=== PATIENT | male | born 1945 | race Caucasian/White ===

== ENCOUNTER → 2017-06-05 09:11 | Outpatient (CLI) | payer MEDICARE, SELFPAY ==
[2017-06-05 10:29] LABS: AST(SGOT) 22 U/L (15-37); Alanine Aminotransfer ALT/SGPT 38 U/L (16-61); Albumin, Serum 3.5 g/dL (3.2-5.0); Alkaline Phosphatase 55 U/L (45-117); Anion Gap 8 (5-15); BUN 20 mg/dL (7-18); BUN/Creat Ratio 22.6 RATIO (10-20); Calcium,Total 8.9 mg/dL (8.5-10.1); Chloride 104 mmol/L (98-107); Creatinine, Serum 0.88 mg/dL (0.70-1.30); EST Glomerular Filtration Rate 90 mL/min (>60); Est Glom Filt Rate - Afr Amer 109 mL/min (>60); Globulin 3.5 g/dL (2.2-4.2); Glucose 108 mg/dL (74-106); Potassium 3.3 mmol/L (3.5-5.1); Sodium Level 140 mmol/L (136-145)
== END ==
PROVIDERS: Family Provider Family Medicine; PCP Family Medicine; Visit Provider Family Medicine
DX: I10 Essential (primary) hypertension (principal)
CPT/HCPCS: 36415; 80053

== ENCOUNTER → 2018-06-04 10:08 | Outpatient (CLI) | payer OTHER, SELFPAY ==
[2018-06-04 11:47] LABS: Anion Gap 7 (5-15); BUN 17 mg/dL (7-18); BUN/Creat Ratio 17.3 RATIO (10-20); Calcium,Total 8.5 mg/dL (8.5-10.1); Chloride 107 mmol/L (98-107); Cholesterol 134 mg/dL (200); Creatinine, Serum 0.98 mg/dL (0.70-1.30); EST Glomerular Filtration Rate 79 mL/min (>60); Est Glom Filt Rate - Afr Amer 96 mL/min (>60); Glucose 104 mg/dL (74-106); High Density Lipoprotein 44 mg/dL; Potassium 3.8 mmol/L (3.5-5.1); Sodium Level 140 mmol/L (136-145); Triglycerides 90 mg/dL; Very Low Density Lipoprotein 18 mg/dL (5-40)
[2018-06-04 13:50] LABS: Microalbumin,Random Urine 21.3 mg/L (NO RANGE EST.)
== END ==
PROVIDERS: Family Provider Family Medicine; PCP Family Medicine; Referring Provider Family Medicine; Visit Provider Family Medicine
DX: I10 Essential (primary) hypertension (principal)
CPT/HCPCS: 36415; 80048; 80061; 82043

== ENCOUNTER → 2018-12-02 16:16 | Outpatient (CLI) | payer OTHER, SELFPAY ==
[2018-12-02 18:15] LABS: Anion Gap 8 (5-15); BUN 22 mg/dL (7-18); BUN/Creat Ratio 24.3 RATIO (10-20); Calcium,Total 8.7 mg/dL (8.5-10.1); Chloride 110 mmol/L (98-107); Creatinine, Serum 0.91 mg/dL (0.70-1.30); EST Glomerular Filtration Rate 87 mL/min (>60); Est Glom Filt Rate - Afr Amer 105 mL/min (>60); Glucose 83 mg/dL (74-106); Potassium 3.3 mmol/L (3.5-5.1); Sodium Level 145 mmol/L (136-145)
== END ==
PROVIDERS: Family Provider Family Medicine; PCP Family Medicine; Referring Provider Family Medicine; Visit Provider Family Medicine
DX: I10 Essential (primary) hypertension (principal)
CPT/HCPCS: 36415; 80048

== ENCOUNTER → 2019-06-03 09:29 | Outpatient (CLI) | payer OTHER, SELFPAY ==
[2019-06-03 10:29] LABS: Anion Gap 6 (5-15); BUN 21 mg/dL (7-18); BUN/Creat Ratio 21.2 RATIO (10-20); Calcium,Total 8.8 mg/dL (8.5-10.1); Chloride 105 mmol/L (98-107); Cholesterol 147 mg/dL (200); Creatinine, Serum 0.99 mg/dL (0.70-1.30); EST Glomerular Filtration Rate 78 mL/min (>60); Est Glom Filt Rate - Afr Amer 95 mL/min (>60); Glucose 110 mg/dL (74-106); High Density Lipoprotein 42 mg/dL; Potassium 3.3 mmol/L (3.5-5.1); Sodium Level 141 mmol/L (136-145); Triglycerides 154 mg/dL; Very Low Density Lipoprotein 31 mg/dL (5-40)
== END ==
PROVIDERS: PCP Family Medicine; Referring Provider Family Medicine; Visit Provider Family Medicine
DX: I10 Essential (primary) hypertension (principal)
CPT/HCPCS: 36415; 80048; 80061

== ENCOUNTER → 2019-07-12 15:45 | Outpatient (CLI) | payer OTHER, SELFPAY ==
[2019-07-12 18:16] LABS: Anion Gap 6 (5-15); BUN 18 mg/dL (7-18); Calcium,Total 9.4 mg/dL (8.5-10.1); Chloride 103 mmol/L (98-107); Creatinine, Serum 0.95 mg/dL (0.70-1.30); EST Glomerular Filtration Rate 82 mL/min (>60); Est Glom Filt Rate - Afr Amer 100 mL/min (>60); Glucose 76 mg/dL (74-106); Sodium Level 138 mmol/L (136-145)
== END ==
PROVIDERS: PCP Family Medicine; Referring Provider Family Medicine; Visit Provider Family Medicine
DX: Z00.00 Encounter for general adult medical examination without abnormal findings (principal); Z12.5 Encounter for screening for malignant neoplasm of prostate; I10 Essential (primary) hypertension
CPT/HCPCS: 36415; 80048; 84153; G0103

== ENCOUNTER → 2019-09-01 16:27 | Outpatient (CLI) | payer OTHER, SELFPAY ==
[2019-09-01 18:27] LABS: Anion Gap 8 (5-15); BUN 25 mg/dL (7-18); BUN/Creat Ratio 23.1 RATIO (10-20); Calcium,Total 9.1 mg/dL (8.5-10.1); Chloride 104 mmol/L (98-107); Creatinine, Serum 1.08 mg/dL (0.70-1.30); EST Glomerular Filtration Rate 71 mL/min (>60); Est Glom Filt Rate - Afr Amer 86 mL/min (>60); Glucose 140 mg/dL (74-106); Potassium 3.2 mmol/L (3.5-5.1); Sodium Level 139 mmol/L (136-145)
== END ==
PROVIDERS: PCP Family Medicine; Referring Provider Family Medicine; Visit Provider Family Medicine
DX: I10 Essential (primary) hypertension (principal)
CPT/HCPCS: 36415; 80048

== ENCOUNTER → 2019-09-27 15:24 | Outpatient (CLI) | payer OTHER, SELFPAY ==
[2019-09-27 18:10] LABS: Anion Gap 7 (5-15); BUN 23 mg/dL (7-18); BUN/Creat Ratio 22.3 RATIO (10-20); Calcium,Total 8.9 mg/dL (8.5-10.1); Chloride 106 mmol/L (98-107); Creatinine, Serum 1.03 mg/dL (0.70-1.30); EST Glomerular Filtration Rate 75 mL/min (>60); Est Glom Filt Rate - Afr Amer 90 mL/min (>60); Glucose 94 mg/dL (74-106); Potassium 3.3 mmol/L (3.5-5.1); Sodium Level 139 mmol/L (136-145)
== END ==
PROVIDERS: PCP Family Medicine; Visit Provider Family Medicine
DX: E87.6 Hypokalemia (principal)
CPT/HCPCS: 36415; 80048

== ENCOUNTER → 2019-10-06 08:20 | Outpatient (CLI) | payer OTHER, SELFPAY ==
[2019-10-06 15:23] LABS: Anion Gap 7 (5-15); BUN 24 mg/dL (7-18); Calcium,Total 9.1 mg/dL (8.5-10.1); Chloride 107 mmol/L (98-107); Creatinine, Serum 1.26 mg/dL (0.70-1.30); EST Glomerular Filtration Rate 59 mL/min (>60); Est Glom Filt Rate - Afr Amer 72 mL/min (>60); Glucose 199 mg/dL (74-106); Potassium 3.6 mmol/L (3.5-5.1); Sodium Level 142 mmol/L (136-145)
== END ==
PROVIDERS: PCP Family Medicine; Visit Provider Family Medicine
DX: E87.6 Hypokalemia (principal)
CPT/HCPCS: 36415; 80048

== ENCOUNTER → 2019-12-16 09:14 | Outpatient (CLI) | payer MEDICARE, SELFPAY ==
[2019-12-16 10:18] LABS: Anion Gap 5 (5-15); BUN 18 mg/dL (7-18); BUN/Creat Ratio 16.7 RATIO (10-20); Calcium,Total 8.8 mg/dL (8.5-10.1); Chloride 104 mmol/L (98-107); Cholesterol 133 mg/dL (200); Creatinine, Serum 1.08 mg/dL (0.70-1.30); EST Glomerular Filtration Rate 71 mL/min (>60); Est Glom Filt Rate - Afr Amer 86 mL/min (>60); Glucose 109 mg/dL (74-106); High Density Lipoprotein 41 mg/dL; Potassium 3.5 mmol/L (3.5-5.1); Sodium Level 136 mmol/L (136-145); Triglycerides 102 mg/dL; Very Low Density Lipoprotein 20 mg/dL (5-40)
== END ==
PROVIDERS: PCP Family Medicine; Referring Provider Family Medicine; Visit Provider Family Medicine
DX: I10 Essential (primary) hypertension (principal)
CPT/HCPCS: 36415; 80048; 80061

== ENCOUNTER → 2020-07-20 10:04 | Outpatient (CLI) | payer MEDICARE, SELFPAY ==
[2020-07-20 11:14] LABS: Anion Gap 4 (5-15); BUN 20 mg/dL (7-18); Calcium,Total 8.8 mg/dL (8.5-10.1); Chloride 104 mmol/L (98-107); Cholesterol 137 mg/dL (200); Creatinine, Serum 0.91 mg/dL (0.70-1.30); EST Glomerular Filtration Rate 86 mL/min (>60); Est Glom Filt Rate - Afr Amer 104 mL/min (>60); Glucose 108 mg/dL (74-106); High Density Lipoprotein 46 mg/dL; Potassium 3.7 mmol/L (3.5-5.1); Sodium Level 138 mmol/L (136-145); Triglycerides 108 mg/dL; Very Low Density Lipoprotein 22 mg/dL (5-40)
== END ==
PROVIDERS: PCP Family Medicine; Referring Provider Family Medicine; Visit Provider Family Medicine
DX: I10 Essential (primary) hypertension (principal); B97.21 SARS-associated coronavirus as the cause of diseases classified elsewhere
CPT/HCPCS: 36415; 80048; 80061; 86769

== ENCOUNTER → 2020-08-16 15:51 | Outpatient (CLI) | payer MEDICARE, SELFPAY | PROVIDERS: PCP Family Medicine; Referring Provider Family Medicine; Visit Provider Family Medicine | DX: N52.9 Male erectile dysfunction, unspecified (principal) | CPT/HCPCS: 36415; 84403 ==

== ENCOUNTER → 2021-03-01 10:29 | Outpatient (CLI) | payer MEDICARE, SELFPAY ==
[2021-03-01 12:05] LABS: Anion Gap 7 (5-15); BUN 19 mg/dL (7-18); BUN/Creat Ratio 14.8 RATIO (10-20); Calcium,Total 10.1 mg/dL (8.5-10.1); Chloride 102 mmol/L (98-107); Cholesterol 137 mg/dL (200); Creatinine, Serum 1.28 mg/dL (0.70-1.30); EST Glomerular Filtration Rate 58 mL/min (>60); Est Glom Filt Rate - Afr Amer 70 mL/min (>60); Glucose 118 mg/dL (74-106); High Density Lipoprotein 51 mg/dL; Potassium 3.6 mmol/L (3.5-5.1); Sodium Level 138 mmol/L (136-145); Triglycerides 105 mg/dL; Very Low Density Lipoprotein 21 mg/dL (5-40)
== END ==
PROVIDERS: PCP Family Medicine; Visit Provider Family Medicine
DX: I10 Essential (primary) hypertension (principal)
CPT/HCPCS: 36415; 80048; 80061

== ENCOUNTER → 2021-08-06 | Outpatient (CLI) | payer MEDICARE, SELFPAY ==
[2021-08-06 10:36] LABS: Anion Gap 8 (5-15); BUN 21 mg/dL (7-18); BUN/Creat Ratio 15.7 RATIO (10-20); Calcium,Total 9.3 mg/dL (8.5-10.1); Chloride 100 mmol/L (98-107); Creatinine, Serum 1.34 mg/dL (0.70-1.30); EST Glomerular Filtration Rate 55 mL/min (>60); Est Glom Filt Rate - Afr Amer 66 mL/min (>60); Glucose 180 mg/dL (74-106); Potassium 3.6 mmol/L (3.5-5.1); Sodium Level 135 mmol/L (136-145)
== END | disposition home or self-care (01) ==
LOC: MFPLAB 08:46
PROVIDERS: PCP Family Medicine; Referring Provider Family Medicine; Visit Provider Family Medicine
DX: I10 Essential (primary) hypertension (principal)
CPT/HCPCS: 36415; 80048

== ENCOUNTER → 2021-08-20 | Outpatient (CLI) | payer MEDICARE, SELFPAY ==
[2021-08-20 10:27] LABS: Glucose 122 mg/dL (74-106)
[2021-08-20 10:58] LABS: Hemoglobin A1c 5.9 % (3.8-5.6)
== END | disposition home or self-care (01) ==
PROVIDERS: PCP Family Medicine; Visit Provider Family Medicine
DX: R73.09 Other abnormal glucose (principal)
CPT/HCPCS: 36415; 82947; 83036

== ENCOUNTER → 2022-02-05 | Outpatient (CLI) | payer MEDICARE, SELFPAY ==
[2022-02-05 10:29] LABS: Hemoglobin A1c 5.4 % (3.8-5.6)
[2022-02-05 10:52] LABS: Anion Gap 8 (5-15); BUN 21 mg/dL (7-18); BUN/Creat Ratio 17.5 RATIO (10-20); Calcium,Total 9.7 mg/dL (8.5-10.1); Chloride 103 mmol/L (98-107); Cholesterol 156 mg/dL (200); EST Glomerular Filtration Rate 62 mL/min (>60); Est Glom Filt Rate - Afr Amer 75 mL/min (>60); Glucose 120 mg/dL (74-106); High Density Lipoprotein 42 mg/dL; Potassium 3.6 mmol/L (3.5-5.1); Sodium Level 137 mmol/L (136-145); Triglycerides 111 mg/dL; Very Low Density Lipoprotein 22 mg/dL (5-40)
== END | disposition home or self-care (01) ==
LOC: MFPLAB 08:31
PROVIDERS: PCP Family Medicine; Referring Provider Family Medicine; Visit Provider Family Medicine
DX: R73.09 Other abnormal glucose (principal); I10 Essential (primary) hypertension
CPT/HCPCS: 36415; 80048; 80061; 83036

== ENCOUNTER → 2022-02-23 | Outpatient (CLI) | payer MEDICARE, SELFPAY ==
--- NOTE | 2022-02-23 15:06 | RAD_ITS ---
EXAM: XR LEFT RIBS, 2 VIEWS CLINICAL INDICATION: FALL WITH INJURY TECHNIQUE: Frontal and oblique views of the left ribs. This report was created using [employer] report generation technology. COMPARISON: None. FINDINGS: LUNGS AND PLEURAL SPACES: Shallow inspiration. No pneumothorax. No effusion. 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 SOFT TISSUES: Normal. No soft tissue swelling or gas. RAD/Ribs Unil 2V No CXR IMPRESSION: No acute abnormality. Electronically Signed: Zeferino Magallon MD at 15:33 EST ,
== END | disposition home or self-care (01) ==
PROVIDERS: PCP Family Medicine; Referring Provider Family Medicine; Visit Provider Family Medicine
DX: S29.9XXA Unspecified injury of thorax, initial encounter (principal); W19.XXXA Unspecified fall, initial encounter
CPT/HCPCS: 71100

== ENCOUNTER → 2022-09-12 | Outpatient (CLI) | payer MEDICARE, SELFPAY ==
[2022-09-12 09:20] LABS: Anion Gap 4 (5-15); BUN 19 mg/dL (7-18); BUN/Creat Ratio 15.8 RATIO (10-20); Calcium,Total 9.3 mg/dL (8.5-10.1); Chloride 106 mmol/L (98-107); Cholesterol 152 mg/dL (200); EST Glomerular Filtration Rate 62 mL/min (>60); Est Glom Filt Rate - Afr Amer 75 mL/min (>60); Glucose 111 mg/dL (74-106); High Density Lipoprotein 45 mg/dL; Potassium 4.2 mmol/L (3.5-5.1); Sodium Level 138 mmol/L (136-145); Triglycerides 115 mg/dL; Very Low Density Lipoprotein 23 mg/dL (5-40)
== END | disposition home or self-care (01) ==
LOC: LAB 08:45
PROVIDERS: PCP Family Medicine; Referring Provider Family Medicine; Visit Provider Family Medicine
DX: I10 Essential (primary) hypertension (principal)
CPT/HCPCS: 36415; 80048; 80061

== ENCOUNTER → 2023-02-05 | Outpatient (CLI) | payer MEDICARE, SELFPAY ==
[2023-02-05 19:11] LABS: Anion Gap 7 (5-15); BUN 18 mg/dL (7-18); BUN/Creat Ratio 17.8 RATIO (10-20); Calcium,Total 9.1 mg/dL (8.5-10.1); Chloride 103 mmol/L (98-107); Creatinine, Serum 1.01 mg/dL (0.70-1.30); EST Glomerular Filtration Rate 76 mL/min (>60); Est Glom Filt Rate - Afr Amer 92 mL/min (>60); Glucose 90 mg/dL (74-106); Potassium 3.5 mmol/L (3.5-5.1); Sodium Level 138 mmol/L (136-145)
== END | disposition home or self-care (01) ==
LOC: MFPLAB 16:52
PROVIDERS: PCP Family Medicine; Visit Provider Family Medicine
DX: I10 Essential (primary) hypertension (principal)
CPT/HCPCS: 36415; 80048

== ENCOUNTER → 2023-08-04 | Outpatient (CLI) | payer MEDICARE, SELFPAY ==
[2023-08-04 15:13] LABS: Absolute Lymphocyte Count 1.48 X10^3/uL (0.83-4.51); Absolute Neutrophil Count 5.1 X10^3/uL (2.0-7.7); Basophil# 0.05 X10^3/uL; Basophil% 0.6 % (0-1); Eosinophil# 0.26 X10^3/uL; Eosinophils% 3.3 % (0-5); Hematocrit 39.5 % (40-54); Hemoglobin 13.7 g/dL (13.0-16.5); Lymphocyte # 1.48 X10^3/ul (0.83-4.51); Lymphocyte % 18.9 % (19-41); Mean Corp Hgb Conc 34.7 g/dL (32-36); Mean Corpuscular Hgb 31.5 pg (27.0-32.0); Mean Corpuscular Volume 90.8 fL (80-94); Mean Platelet Vol. 10.9 fl (6.2-12.0); Monocyte# 0.87 X10^3/uL; Monocyte% 11.1 % (0-10); NRBC Flagged by Analyzer 0 % (0-5); Neutrophil # 5.11 X10^3/uL (2.7-7.7); Neutrophil % 65.3 % (47-70); Platelet Count 169 K/mm3 (150-450); RBC Distribution Width CV 13.2 % (11.6-14.6); RBC Distribution Width SD 43.6 fl (35.1-43.9); Red Blood Count 4.35 M/mm3 (4.6-6.2); White Blood Count 7.8 K/mm3 (4.4-11.0)
[2023-08-04 15:32] LABS: Hemoglobin A1c 5.7 % (3.8-5.6)
[2023-08-04 15:54] LABS: Anion Gap 7 (5-15); BUN 21 mg/dL (7-18); BUN/Creat Ratio 17.8 RATIO (10-20); Chloride 105 mmol/L (98-107); Cholesterol 142 mg/dL (200); Creatinine, Serum 1.18 mg/dL (0.70-1.30); EST Glomerular Filtration Rate 63 mL/min (>60); Est Glom Filt Rate - Afr Amer 77 mL/min (>60); Glucose 112 mg/dL (74-106); High Density Lipoprotein 45 mg/dL; Potassium 3.8 mmol/L (3.5-5.1); Sodium Level 136 mmol/L (136-145); Thyroid Stim Hormone (TSH) 1.01 uIU/mL (0.358-3.74); Triglycerides 120 mg/dL; Very Low Density Lipoprotein 24 mg/dL (5-40)
== END | disposition home or self-care (01) ==
PROVIDERS: PCP Family Medicine; Referring Provider Family Medicine; Visit Provider Family Medicine
DX: I10 Essential (primary) hypertension (principal); R73.09 Other abnormal glucose; R53.83 Other fatigue
CPT/HCPCS: 36415; 80048; 80061; 83036; 84443; 85025

== ENCOUNTER → 2023-10-27 | Outpatient (CLI) | payer MEDICARE, SELFPAY ==
[2023-10-27 17:59] LABS: Hematocrit 39.6 % (40-54); Hemoglobin 13.6 g/dL (13.0-16.5); Mean Corp Hgb Conc 34.3 g/dL (32-36); Mean Corpuscular Hgb 31.2 pg (27.0-32.0); Mean Corpuscular Volume 90.8 fL (80-94); Mean Platelet Vol. 10.8 fl (6.2-12.0); Platelet Count 209 K/mm3 (150-450); RBC Distribution Width CV 13.2 % (11.6-14.6); RBC Distribution Width SD 44.3 fl (35.1-43.9); Red Blood Count 4.36 M/mm3 (4.6-6.2)
[2023-10-27 18:20] LABS: Anion Gap 6 (5-15); BUN 25 mg/dL (7-18); Chloride 103 mmol/L (98-107); Creatinine, Serum 1.39 mg/dL (0.70-1.30); EST Glomerular Filtration Rate 52 mL/min (>60); Est Glom Filt Rate - Afr Amer 63 mL/min (>60); Glucose 111 mg/dL (74-106); Potassium 3.5 mmol/L (3.5-5.1); Sodium Level 137 mmol/L (136-145); Thyroid Stim Hormone (TSH) 1.12 uIU/mL (0.358-3.74)
== END | disposition home or self-care (01) ==
LOC: MFPLAB 16:47
PROVIDERS: PCP Family Medicine; Visit Provider Family Medicine
DX: R53.83 Other fatigue (principal); I10 Essential (primary) hypertension
CPT/HCPCS: 36415; 80048; 84403; 84443; 85027

== ENCOUNTER 2024-02-09 08:37 | Observation (INO) | payer MEDICARE, SELFPAY ==
--- NOTE | 2024-01-04 10:28 | EKG12_ITS ---
Test Reason : PRE OP Blood Pressure : / mmHG Vent. Rate : 067 BPM Atrial Rate : 067 BPM P-R Int : 166 ms QRS Dur : 088 ms QT Int : 402 ms P-R-T Axes : 035 005 086 degrees QTc Int : 424 ms Normal sinus rhythm Normal ECG Confirmed by GARY LOPEZ, JESSICA ([id number]), graphics editor GRISEL TEE ([id number]) on 01/04/2024 1:29:07 PM Referred By: Anthony Tse Confirmed By:JESSICA VEGA MD
[2024-01-12 09:57] VITALS: BP 121/77; PULSE 73; RESP 17; TEMP 36.4; O2SAT 99; BMI 34.4
[2024-01-12 09:58] VITALS: BP 121/77; PULSE 73; RESP 17; TEMP 36.4; O2SAT 99; BMI 34.4
[2024-01-12] MEDS: Lactated Ringers 1,000 ML 15 ML IV (10:03)
--- NOTE | 2024-01-12 10:25 | PRE.ANES_ITS ---
ASA Classification* ASA Classification ASA Classification: 2 Assessment & Plan Anesthesia* Anesthesia Assessment Anesthesia Assessment: Discussed sedation and/or anesthesia options, risks, benefits, and alternatives with patient/parents/legal guardian/POA. Questions invited. The patient/parents/legal guardian/POA seems to understand and agrees to proceed with anesthesia plan. Reviewed the physical assessment, medical history, allergy history and patient home medications list prior to surgery/procedure/anesthetic and documented any changes. Performed airway and anesthesia risk assessments. Procedural Plan Procedural Plan:: NOT optimized for anesthesia (Patient had peanut butter with his morning medications at 8 AM.) and Surgeon canceled surgery Anesthesia Type Anesthesia Type: General History Source History Obtained from:: Patient and Chart Anesthesia Focused Assessment* Temperature: 97.6 F Pulse Rate: 73 Blood Pressure: 121/77 Respiratory Rate: 17 Pulse Ox: 99 Oxygen Delivery Method: Room Air Airway Assessment Mouth opens: >3 cm Mallampati Score: IV Teeth Condition: Dentures (Patient has upper and lower dentures.) Neck Range of motion (ROM): Limited ROM Focused Labs Anesthesia Preop lab: CBC WBC 9.0 K/mm3 (4.4-11.0) 10/27/23 16:47 RBC 4.36 M/mm3 (4.6-6.2) L 10/27/23 16:47 Hgb 13.6 g/dL (13.0-16.5) 10/27/23 16:47 Hct 39.6 % (40-54) L 10/27/23 16:47 Plt Count 209 K/mm3 (150-450) 10/27/23 16:47 CHEMISTRY Potassium 3.5 mmol/L (3.5-5.1) 10/27/23 16:47 Sodium 137 mmol/L (136-145) 10/27/23 16:47 BUN 25 mg/dL (7-18) H 10/27/23 16:47 Creatinine 1.39 mg/dL (0.70-1.30) H 10/27/23 16:47 Glucose 111 mg/dL (74-106) H 10/27/23 16:47 TSH 1.12 uIU/mL (0.358-3.74) 10/27/23 16:47 COAG Pre-Assessment Diagnosis/Proposed Procedure Planned Operative Procedure(s): Hernia, Open Umbilical Repair w/ Mesh Anesthesia History Anesthesia History - slab tripper: Anesthesia History - slab tripper Hx Hospitalization No 12/30/23 08:27 Any Problems With Anesthesia No 12/30/23 08:27 Cholinesterase deficiency No 12/30/23 08:27 You/Your Family Experience No 12/30/23 08:27 fever (hyperthermia) with Relationship Recent Exposure to Contagious No 01/12/24 09:58 Disease Does patient have nerve No 12/30/23 08:27 stimulator Patient instructed to have device shut off --Does patient have Pacemaker No 01/12/24 09:58 or ICD? When Was Last Pacemaker Check QUESTION #4 FULL TEXT: You/Your Family Experience fever (hyperthermia) with Anesthesia Last Oral Intake Last Oral intake: Last Oral Intake NPO since 08:00 01/12/24 09:58 Meds taken in AM with sips of Yes 01/12/24 09:58 water? Meds patient instructed to see home med list 01/12/24 09:58 take am of surgery Any additional information?: Yes NPO since: 08:00 (Patient had peanut butter with his morning pills.) PONV PONV - slab tripper: PONV - slab tripper Female No 12/30/23 08:27 HX of Motion Sickness No 12/30/23 08:27 HX of N/V After Surgery No 12/30/23 08:27 Non-Smoker Yes 12/30/23 08:27 Duration of Surgery greater Yes 12/30/23 08:27 than 60 minutes Number of Risk Factors 2 12/30/23 08:27 PONV Score Moderate Risk 12/30/23 08:27 Height & Weight Height & Weight: Anesthesia: Height & Weight Height 5 ft 10 in 01/12/24 09:58 Weight: 109 kg 01/12/24 09:58 Body Mass Index (BMI) 34.4 01/12/24 09:58 Respiratory Assessment Respiratory Assessment - slab tripper: Respiratory Tract Infection Hx - slab tripper Hx Respiratory Tract Infection No 12/30/23 08:27 STOP Sleep Apnea STOP Sleep Apnea - slab tripper: STOP Sleep Apnea - slab tripper Hx Hypertension Yes: CONTROLLED WITH MED 12/30/23 08:27 Hx Sleep Apnea No 12/30/23 08:27 CPAP BIPAP Do you snore loudly (louder No 12/30/23 08:27 than talking or can be heard Do you often feel tired/ No 12/30/23 08:27 fatigued/ sleepy during daytime? Has anyone observed you stop No 12/30/23 08:27 breathing during sleep? STOP Results Negative 12/30/23 08:27 QUESTION #5 FULL TEXT : Do you snore loudly (louder than talking or can be heard through closed doors)? 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 Specify any problems Hx of Preganancy in last 3 N/A 12/30/23 08:27 Months Nurse Filling Out Transfusion [facility] 12/30/23 08:27 & Questions: Date: 12/30/23 12/30/23 08:27 Time: 08:28 12/30/23 08:27 Patient unable to answer at this time (ie. confused, unrespo /Reproduction History /Reproductive History - slab tripper: /Reproductive Hx- slab tripper Hx Now No 12/30/23 08:27 Gestational Age (in weeks): EDC: Hx Hx Para Hx Section SAB No 12/30/23 08:27 Active Medications Active Medications: Current Medications Generic Name Dose Route Start Last Admin Trade Name Freq PRN Reason Stop Dose Admin Cefazolin Sodium 2 gm/ N/A 20 mls @ 400 mls/hr 01/12/24 11:00 IV 01/12/24 11:02 PREOP ONE Lactated Ringer's 1,000 mls @ 15 mls/hr 01/12/24 10:00 01/12/24 10:03 IV 01/17/24 23:19 15 mls/hr .Q48H SABA Administration Protocol PFS Medical History (Updated 12/30/23 @ 08:38 by Mahsa Rose) Wears glasses Alcohol use History of kidney stones Syncope Gastric reflux Non-smoker Wears dentures HTN (hypertension) Home Medications ?Medication ?Instructions ?Recorded ?Last Taken ?Type Saccharomyces boulardii 250 mg 250 mg PO BID 12/21/23 01/11/24 History capsule (Daily Probiotic (S. boulardii)) [id number] 333 mg-133 2 tab PO DAILY 12/21/23 01/11/24 History mg-5 mg tablet chlorthalidone 25 mg tablet 25 mg PO QDAY 12/21/23 01/12/24 History cholecalciferol (vitamin D3) 25 25 mcg PO QDAY 12/21/23 01/11/24 History mcg (1,000 unit) capsule losartan 50 mg tablet 50 mg PO QDAY 12/21/23 01/12/24 History potassium chloride 20 mEq 20 meq PO QDAY 12/21/23 01/12/24 History tablet,extended release spironolactone 25 mg tablet 12.5 mg PO QDAY 12/21/23 01/12/24 History vitamin B comp and C no.3 15 mg-10 1 cap PO QDAY 12/21/23 01/11/24 History mg-50 mg-5 mg-300 mg capsule (B Complex Plus Vitamin C) Allergy/AdvReac Type Severity Reaction Status Date / Time lisinopril Allergy Mild Other Verified 01/12/24 09:56 Family History (Updated 12/21/23 @ 13:06 by Jenni García) Father Cancer lung Mother Heart disease Surgical History (Updated 12/30/23 @ 08:38 by Mahsa Rose) History of colonoscopy History of facial fracture repair (~1974) Social History Smoking Status: Never smoker Review of Systems (Anesthesia) ROS Narrative System reviewed and no additional complaints, except as documented.
--- NOTE | 2024-01-12 10:29 | HP.PCM_ITS ---
History and Physical Date of Admission: 01/12/24 Intake Vital Signs 12/20/2412:06 Height 5 ft 10 in Weight: 237 lb BMI 34.0 BP 106/69 Blood Pressure Location Rt brachial Position Sitting Respiration 17 Pulse 69 Pulse Source Monitor Pulse Oximetry (%) 96 Oxygen Delivery Method room air Intake Visit Reasons: UMBILICAL HERNIA Chief Complaint: umbilical hernia Is patient in pain?: No Allergies lisinopril Allergy (Mild, Verified 12/21/23 13:07) Other Medications ?Medication ?Instructions ?Recorded ?Confirmed ?Type Saccharomyces boulardii 250 mg 250 mg PO BID 12/21/23 12/21/23 History capsule (Daily Probiotic (S. boulardii)) [id number] 333 mg-133 tab PO 12/21/23 12/21/23 History mg-5 mg tablet chlorthalidone 25 mg tablet 25 mg PO QDAY 12/21/23 12/21/23 History cholecalciferol (vitamin D3) 25 25 mcg PO QDAY 12/21/23 12/21/23 History mcg (1,000 unit) capsule losartan 50 mg tablet 50 mg PO QDAY 12/21/23 12/21/23 History potassium chloride 20 mEq 20 meq PO QDAY 12/21/23 12/21/23 History tablet,extended release spironolactone 25 mg tablet 12.5 mg PO QDAY 12/21/23 12/21/23 History vitamin B comp and C no.3 15 mg-10 1 cap PO QDAY 12/21/23 12/21/23 History mg-50 mg-5 mg-300 mg capsule (B Complex Plus Vitamin C) Have you fallen in the past year?: No PFSH Medical History (Updated 12/21/23 @ 13:[address] Anthony Tse MD) HTN (hypertension) Family History (Updated 12/21/23 @ 13:06 by Jenni García) Father Cancer lungMother Heart disease HPI HPI HPI: Patient is an 78-year-old male here with a large umbilical hernia. The patient reports has been there for several years. Is becoming more painful. He is able to reduce it. He denies nausea or vomiting. ROS General General: No weight change, appetite, fatigue, colon cancer, breast cancer or weakness HEENT HEENT: No difficulty swallowing, eye injury, eye surgery, swollen glands or hoarseness Endo Endocrine: No thyroid disease, diabetes mellitus, thyroid cancer, Hair loss, heat intolerance or cold intolerance Skin Skin: No rash or changing moles Musc Musculoskeletal: No back problems, arthritis, rheumatoid arthritis, gout or joint pain Cardio Cardiovascular: Yes high blood pressure; No murmur, pacemaker, heart disease, atrial fibrillation, heart attack, heart stent, palpitations, shortness of breat with exertion or chest pain Psych Psychiatric: No depression, anxiety or hearing voices Resp Respiratory: No shortness of breath, No sleep apnea, No cough, No COPD, No asthma, No emphysema and No wheezing Gastro Gastrointestinal: No abdominal pain, No nausea or vomiting, No diarrhea, No constipation, No blood in stool, No acid reflux, No hemorrhoids, No ulcers, No g allbladder problem and No black,tarry stools Baljit Hematologic: No blood thinners, No blood disorders, No bleeding, No anemia and No blood clots Neuro Neurologic: No system reviewed and no additional complaints, except as documented, No as per HPI, No abnormal gait, No abnormal hearing, No abnormal movements, No abnormal speech, No behavioral changes, No burning sensations, No confusion, No convulsions, No disequilibrium, No dizziness, No localized weakness, No frequent falls, No headache(s), No lack of coordination, No loss of vision, No memory loss, No numbness, No other visual disturbances, No radicular pain, No restless legs, No sensory deficit, No syncope, No tingling, No tremor(s), No weakness and No other Exam Const General: cooperative Orientation: alert and oriented x3 HENMT Head: normal to inspection Neck Neck: normal visual inspection and full ROM Chest Chest palpation & inspection: normal inspection of the chest Resp Effort & Inspection: normal respiratory effort Auscultation: clear to auscultation bilaterally Cardio Rate: regular rate Rhythm: regular rhythm GI Inspection: non-distended Palpation: soft, hernia umbilical and nontender Skin General: no rashes or lesions noted Neuro General: patient alert and patient oriented x3 Extrem General: full ROM Psych Appearance: grossly normal Mental Status: mental status grossly normal Assessment and Plan Assessment and Plan (1) Umbilical hernia: Status: Acute Qualifiers: Obstruction and gangrene presence: without obstruction or gangrene Qualified Code(s): K42.9 - Umbilical hernia without obstruction or gangrene Plan: The patient has a large umbilical hernia. The defect measures approximately 4 cm in diameter and 4 cm in length. It is easily reducible. I discussed a retrorectus open repair with him in detail. I discussed placement of mesh as well. I discussed the risks of the procedure such as bleeding, infection, injury other organs, recurrence of hernia. Patient understands all the risks and is willing to proceed. Anthony Tse MD Pager: [facility] [address] [place] [address] [address] [place] [address] Office: I have examined the patient and the H&P has been reviewed. There are no clinical changes since date of exam.
[2024-01-12 10:32] VITALS: BP 121/77; PULSE 73; RESP 17; TEMP 36.4; O2SAT 99
--- NOTE | 2024-01-12 10:53 | NURSING ---
PT TOLD DR. ADAMS THAT HE HAD PEANUT BUTTER WITH HIS PILLS THIS MORNING AT 0800. PER ANESTHESIA GUIDELINES PT CANNOT GO FOR [address] ARCHER IS NOT ABLE TO DO SURGERY THAT LATE TODAY. PT IS ELECTIVE, SURGERY TO BE CANCELLED TODAY AND RESCHEDULED FOR A LATER DATE. PT GUIDED TO NOT EAT OR DRINK MORNING OF SURGERY. IV DISCONTINUED AND PT D/C TO HOME.
[2024-02-09] VITALS (16 sets, daily range): BP systolic 97–133; BP diastolic 59–85; PULSE 65–87; RESP 16–18; TEMP 36.1–37; O2SAT 92–100; BMI 34.4
[2024-02-09] MEDS: Lactated Ringers 1,000 ML 15 ML IV ×2 (06:21→10:59)
--- NOTE | 2024-02-09 07:11 | PRE.ANES_ITS ---
ASA Classification* ASA Classification ASA Classification: 2 Assessment & Plan Anesthesia* Anesthesia Assessment Anesthesia Assessment: Discussed sedation and/or anesthesia options, risks, benefits, and alternatives with patient/parents/legal guardian/POA. Questions invited. The patient/parents/legal guardian/POA seems to understand and agrees to proceed with anesthesia plan. Reviewed the physical assessment, medical history, allergy history and patient home medications list prior to surgery/procedure/anesthetic and documented any changes. Performed airway and anesthesia risk assessments. Anesthesia Type Anesthesia Type: General Anesthesia Focused Assessment* Temperature: 98.1 F Pulse Rate: 68 Blood Pressure: 133/76 Respiratory Rate: 18 Pulse Ox: 100 Airway Assessment Mouth opens: >3 cm Mallampati Score: II Focused Labs Anesthesia Preop lab: CBC WBC 9.0 K/mm3 (4.4-11.0) 10/27/23 16:47 RBC 4.36 M/mm3 (4.6-6.2) L 10/27/23 16:47 Hgb 13.6 g/dL (13.0-16.5) 10/27/23 16:47 Hct 39.6 % (40-54) L 10/27/23 16:47 Plt Count 209 K/mm3 (150-450) 10/27/23 16:47 CHEMISTRY Potassium 3.5 mmol/L (3.5-5.1) 10/27/23 16:47 Sodium 137 mmol/L (136-145) 10/27/23 16:47 BUN 25 mg/dL (7-18) H 10/27/23 16:47 Creatinine 1.39 mg/dL (0.70-1.30) H 10/27/23 16:47 Glucose 111 mg/dL (74-106) H 10/27/23 16:47 TSH 1.12 uIU/mL (0.358-3.74) 10/27/23 16:47 COAG Pre-Assessment Diagnosis/Proposed Procedure Planned Operative Procedure(s): Hernia, Open Umbilical Repair w/ Mesh Anesthesia History 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 When Was Last Pacemaker Check QUESTION #4 FULL TEXT: You/Your Family Experience fever (hyperthermia) with Anesthesia Last Oral Intake Last Oral intake: Last Oral Intake NPO since 00:00 02/09/24 06:18 Meds taken in AM with sips of No 02/09/24 06:18 water? Meds patient instructed to see home med list 01/12/24 09:58 take am of surgery PONV PONV - plumbing engineering draftsperson: PONV - plumbing engineering draftsperson Female No 02/02/24 13:20 HX of Motion Sickness No 02/02/24 13:20 HX of N/V After Surgery No 02/02/24 13:20 Non-Smoker Yes 02/02/24 13:20 Duration of Surgery greater Yes 02/02/24 13:20 than 60 minutes Number of Risk Factors 2 02/02/24 13:20 PONV Score Moderate Risk 02/02/24 13:20 Height & Weight Height & Weight: Anesthesia: Height & Weight Height 5 ft 10 in 02/09/24 06:18 Weight: 109 kg 02/09/24 06:18 Body Mass Index (BMI) 34.4 02/09/24 06:18 Respiratory Assessment Respiratory Assessment - plumbing engineering draftsperson: Respiratory Tract Infection Hx - plumbing engineering draftsperson Hx Respiratory Tract Infection No 02/02/24 13:20 STOP Sleep Apnea STOP Sleep Apnea - plumbing engineering draftsperson: STOP Sleep Apnea - plumbing engineering draftsperson Hx Hypertension Yes: CONTROLLED WITH MED 02/02/24 13:20 Hx Sleep Apnea No 02/02/24 13:20 CPAP BIPAP Do you snore loudly (louder No 02/02/24 13:20 than talking or can be heard Do you often feel tired/ No 02/02/24 13:20 fatigued/ sleepy during daytime? Has anyone observed you stop No 02/02/24 13:20 breathing during sleep? STOP Results Negative 02/02/24 13:20 QUESTION #5 FULL TEXT : Do you snore loudly (louder than talking or can be heard through closed doors)? 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 Specify any problems Hx of Preganancy in last 3 N/A 02/02/24 13:20 Months Nurse Filling Out Transfusion [facility] 02/02/24 13:20 & Questions: Date: 02/02/24 02/02/24 13:20 Time: 13:20 02/02/24 13:20 Patient unable to answer at this time (ie. confused, unrespo /Reproduction History /Reproductive History - plumbing engineering draftsperson: /Reproductive Hx- plumbing engineering draftsperson Hx Now No 02/02/24 13:20 Gestational Age (in weeks): EDC: Hx Hx Para Hx Section SAB No 02/02/24 13:20 Active Medications Active Medications: Current Medications Generic Name Dose Route Start Last Admin Trade Name Freq PRN Reason Stop Dose Admin Cefazolin Sodium 2 gm/ N/A 20 mls @ 400 mls/hr 02/09/24 07:30 IV 02/09/24 07:32 PREOP ONE Lactated Ringer's 1,000 mls @ 15 mls/hr 02/09/24 06:00 02/09/24 06:21 IV 02/12/24 00:39 15 mls/hr .Q48H SABA Administration Protocol [facility] Medical History Wears glasses Alcohol use History of kidney stones Syncope Gastric reflux Non-smoker Wears dentures HTN (hypertension) Home Medications ?Medication ?Instructions ?Recorded ?Last Taken ?Type Saccharomyces boulardii 250 mg 250 mg PO BID 12/21/23 02/06/24 History capsule (Daily Probiotic (S. boulardii)) ammvafl-jpaxlhnby-qgms 333 mg-133 2 tab PO DAILY 12/21/23 02/06/24 History mg-5 mg tablet chlorthalidone 25 mg tablet 25 mg PO QDAY 12/21/23 02/08/24 History cholecalciferol (vitamin D3) 25 25 mcg PO QDAY 12/21/23 02/06/24 History mcg (1,000 unit) capsule losartan 50 mg tablet 50 mg PO QDAY 12/21/23 02/08/24 History potassium chloride 20 mEq 20 meq PO QDAY 12/21/23 02/08/24 History tablet,extended release spironolactone 25 mg tablet 12.5 mg PO QDAY 12/21/23 02/08/24 History vitamin B comp and C no.3 15 mg-10 1 cap PO QDAY 12/21/23 02/06/24 History mg-50 mg-5 mg-300 mg capsule (B Complex Plus Vitamin C) Allergy/AdvReac Type Severity Reaction Status Date / Time lisinopril Allergy Mild Other Verified 02/09/24 06:06 Family History Father Cancer lung Mother Heart disease Surgical History History of colonoscopy History of facial fracture repair (~1974) Social History Smoking Status: Never smoker Review of Systems (Anesthesia) ROS Narrative System reviewed and no additional complaints, except as documented.
--- NOTE | 2024-02-09 07:20 | PCM.HP.BLA ---
History and Physical Date of Admission: 02/09/24 Intake Vital Signs 12/20/2412:06 Height 5 ft 10 in Weight: 237 lb BMI 34.0 BP 106/69 Blood Pressure Location Rt brachial Position Sitting Respiration 17 Pulse 69 Pulse Source Monitor Pulse Oximetry (%) 96 Oxygen Delivery Method room air Intake Visit Reasons: UMBILICAL HERNIA Chief Complaint: umbilical hernia Is patient in pain?: No Allergies lisinopril Allergy (Mild, Verified 12/21/23 13:07)Other Medications ?Medication ?Instructions ?Recorded ?Confirmed ?Type Saccharomyces boulardii 250 mg 250 mg PO BID 12/21/23 12/21/23 History capsule (Daily Probiotic (S. boulardii)) [id number]-[id number] 333 mg-133 tab PO 12/21/23 12/21/23 History mg-5 mg tablet chlorthalidone 25 mg tablet 25 mg PO QDAY 12/21/23 12/21/23 History cholecalciferol (vitamin D3) 25 25 mcg PO QDAY 12/21/23 12/21/23 History mcg (1,000 unit) capsule losartan 50 mg tablet 50 mg PO QDAY 12/21/23 12/21/23 History potassium chloride 20 mEq 20 meq PO QDAY 12/21/23 12/21/23 History tablet,extended release spironolactone 25 mg tablet 12.5 mg PO QDAY 12/21/23 12/21/23 History vitamin B comp and C no.3 15 mg-10 1 cap PO QDAY 12/21/23 12/21/23 History mg-50 mg-5 mg-300 mg capsule (B Complex Plus Vitamin C) Have you fallen in the past year?: No PFSH Medical History (Updated 12/21/23 @ 13:[address] Anthony Tse MD) HTN (hypertension) Family History (Updated 12/21/23 @ 13:06 by Jenni García) Father Cancer lungMother Heart disease HPI HPI HPI: Patient is an 78-year-old male here with a large umbilical hernia. The patient reports has been there for several years. Is becoming more painful. He is able to reduce it. He denies nausea or vomiting. ROS General General: No weight change, appetite, fatigue, colon cancer, breast cancer or weakness HEENT HEENT: No difficulty swallowing, eye injury, eye surgery, swollen glands or hoarseness Endo Endocrine: No thyroid disease, diabetes mellitus, thyroid cancer, Hair loss, heat intolerance or cold intolerance Skin Skin: No rash or changing moles Musc Musculoskeletal: No back problems, arthritis, rheumatoid arthritis, gout or joint pain Cardio Cardiovascular: Yes high blood pressure; No murmur, pacemaker, heart disease, atrial fibrillation, heart attack, heart stent, palpitations, shortness of breat with exertion or chest pain Psych Psychiatric: No depression, anxiety or hearing voices Resp Respiratory: No shortness of breath, No sleep apnea, No cough, No COPD, No asthma, No emphysema and No wheezing Gastro Gastrointestinal: No abdominal pain, No nausea or vomiting, No diarrhea, No constipation, No blood in stool, No acid reflux, No hemorrhoids, No ulcers, No gallbladder problem and No black,tarry stools Baljit Hematologic: No blood thinners, No blood disorders, No bleeding, No anemia and No blood clots Neuro Neurologic: No system reviewed and no additional complaints, except as documented, No as per HPI, No abnormal gait, No abnormal hearing, No abnormal movements, No abnormal speech, No behavioral changes, No burning sensations, No confusion, No convulsions, No disequilibrium, No dizziness, No localized weakness, No frequent falls, No headache(s), No lack of coordination, No loss of vision, No memory loss, No numbness, No other visual disturbances, No radicular pain, No restless legs, No sensory deficit, No syncope, No tingling, No tremor(s), No weakness and No other Exam Const General: cooperative Orientation: alert and oriented x3 HENHI Head: normal to inspection Neck Neck: normal visual inspection and full ROM Chest Chest palpation & inspection: normal inspection of the chest Resp Effort & Inspection: normal respiratory effort Auscultation: clear to auscultation bilaterally Cardio Rate: regular rate Rhythm: regular rhythm GI Inspection: non-distended Palpation: soft, hernia umbilical and nontender Skin General: no rashes or lesions noted Neuro General: patient alert and patient oriented x3 Extrem General: full ROM Psych Appearance: grossly normal Mental Status: mental status grossly normal Assessment and Plan Assessment and Plan (1) Umbilical hernia: Status: Acute Qualifiers: Obstruction and gangrene presence: without obstruction or gangrene Qualified Code(s): K42.9 - Umbilical hernia without obstruction or gangrene Plan: The patient has a large umbilical hernia. The defect measures approximately 4 cm in diameter and 4 cm in length. It is easily reducible. I discussed a retrorectus open repair with him in detail. I discussed placement of mesh as well. I discussed the risks of the procedure such as bleeding, infection, injury other organs, recurrence of hernia. Patient understands all the risks and is willing to proceed. Anthony Tse MD Pager: [facility] [address] [place] [address] [address] [place] [address] Office: I have examined the patient and the H&P has been reviewed. There are no clinical changes since date of exam. Patient had surgery canceled last month due to eating before surgery and this is rescheduled.
--- NOTE | 2024-02-09 07:30 | HERN_PTH ---
PATIENT: OLIVER CORREIA LOC: [facility] U#:[id number] AGE/SX: 78/M ROOM: IN313 RE02/09/[address]: Dr. Anthony Tse MD : 1945 BED: 1 DIS: 02/10/2024 SPEC #: [id number] RECD: 02/09/24 09:21 STATUS: MARGE GOLDMANSidney #: [id number] PARTHA: 02/09/24 07:[address]: Anthony Tse DEPT: SURGICAL PATHOLOGY RECD BY: Rolly Chou ENTERED: 02/09/24 11:25 SP TYPE: Hernia OTHR DR: Dr. Ralph Valles MD Tissues: HERNIA Procedures: Surgery Specimen Level II HEADER OPERATION: Hernia, open umbilical repair with mesh PRE-OP DIAGNOSIS: Umbilical hernia TISSUE SUBMITTED: Hernia sac MICROSCOPIC DIAGNOSIS Hernia sac: Pieces of fibroadipose tissue and fibroconnective tissue, consistent with hernia sac. SJ.mr 02/10/2024 MICROSCOPIC DESCRIPTION Slides are reviewed. GROSS DESCRIPTION Received in fixative is one container labeled with the patient's name and designated Hernia sac. The specimen consists of two irregular pieces of pink congested soft tissue measuring in aggregate 10.0 x 6.0 x 1.0cm. Sections do not reveal any mass lesions. Director Digital Catalogue sections are submitted in two cassettes. 02/09/2024 TC:5 CPT:60805
[2024-02-09] MEDS: Cefazolin 2 GM in Syringe IV (07:35)
--- NOTE | 2024-02-09 08:39 | OP.PCM_ITS ---
Operative Report (Standard) Operative Information Surgery/Procedure Performed: Ventral hernia repair with mesh over 3 cm Surgeon: Anthony Tse Date of Procedure: 02/09/24 Procedure Start Time: 07:43 Procedure Stop Time: 08:45 Pre-Operative Diagnosis: Umbilical hernia over 3 cm Post-Operative Diagnosis: Umbilical hernia 5 cm in diameter Select all DRAINS/GRAFTS/IMPLANTS that apply: Implanted device Implanted device details: 8 x [address] mesh Type of Anesthesia: General/Regional Estimated Blood Loss: 10 Specimen collected: Yes Description of specimen(s) removed: Hernia sac Description of surgery: Patient was brought back to the operating room and general anesthesia was induced. The abdomen was prepped and draped in usual sterile fashion. An elliptical incision was made excising some of the extra skin after the hernia was reduced. While making skin incision a small area of small bowel had some cautery injury. This was imbricated using 3-0 silk sutures. Next the bowel was returned to the abdomen. The elliptical incision was completed and the skin was removed. The hernia sac was removed with it. The anterior fascia was dissected circumferentially and then elevated. The retrorectus space was accessed and using electrocautery the posterior rectus sheath was divided from the rectus muscle. This was done on both sides and it was extended superiorly and inferiorly. Once dissection was completed the posterior rectus sheath was reapproximated using a #1 PDS suture. After this was reapproximated the area was irrigated and suctioned dry and then a Ventrio mesh was selected and placed into the retrorectus space. Next the area was irrigated and suctioned dry. The anterior fascia was then closed with a running #1 Prolene suture. Next the skin was reapproximated with interrupted 3-0 Vicryl sutures and a running 4-0 Monocryl suture. Steri-Strips and bandages were applied. Patient was taken to PACU in stable condition and will be observed overnight due to the size of the hernia and the patient's debility. 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
[2024-02-09] MEDS: Bupiv/Epi 0.25% 30 ML Vial (08:46)
--- NOTE | 2024-02-09 09:59 | PCM.POST.ANE ---
Anesthesia: Postop Eval I Current Vital Signs Temperature: 97 F Pulse Rate: 70 Blood Pressure: 106/68 Respiratory Rate: 16 Pulse Ox: 97 Assessment Airway patent: Yes Spontaneous unlabored respirations: Yes Mental status: Awake nausea: No Vomiting: No Anesthesia Complication: No Fluid Hydration Crystalloid volume administer (ml): 500 Total IV fluid infused: 500 Progress Note Anesthesia document: Postop Eval 1 completed: Yes
--- NOTE | 2024-02-09 10:00 | PCM.POSTANE2 ---
Anesthesia Postop Eval I Sum Postop Eval Completion status Anesthesia document: Postop Eval 1 completed: Yes Anesthesia Postop Eval I Summary Anesthesia Postop Eval I Summary: Anesthesia Postop Eval I: Assessment Summary Airway patent Yes 02/09/24 10:00 Spontaneous unlabored Yes 02/09/24 10:00 respirations Mental status Awake 02/09/24 10:00 nausea No 02/09/24 10:00 Vomiting No 02/09/24 10:00 Anesthesia Postop Eval I: Fluid Summary Crystalloid volume administer 500 02/09/24 10:00 (ml) Colloids volume administered ( ml) Blood Product volume administered (ml) Total IV fluid infused 500 02/09/24 10:00 Anesthesia Postop Eval I: Summary Notes Anesthesia Complication No 02/09/24 10:00 Anesthesia Complication Comment: Post-operative progress note Anesthesia: Postop Eval II Evaluation Mental status: Awake Pain Level: 0 nausea: No Vomiting: No
[2024-02-09] MEDS: Ketorolac 15 MG/ML Vial IV (10:27)
[2024-02-09] MEDS: Morphine 2 MG/ML Syringe IV (10:58)
[2024-02-09] MEDS: oxyCODONE 5 MG Tablet PO (16:06)
[2024-02-10 03:20] VITALS: BP 108/70; PULSE 65; RESP 16; TEMP 36.6; O2SAT 96
[2024-02-10] MEDS: Acetaminophen 325 MG Tablet 650 MG PO (03:22)
[2024-02-10] MEDS: oxyCODONE 5 MG Tablet PO ×2 (03:22→08:26)
--- NOTE | 2024-02-10 07:57 | PCM.PN.SRG ---
Subjective Subjective Patient is doing well with no complaints Objective Data Objective Data Vital Signs: Vital Signs Temp Pulse Resp BP Pulse Ox O2 Del Method O2 Flow Rate 98 F 65 16 108/70 96 Room Air 2 02/10/24 03:20 02/10/24 03:20 02/10/24 03:20 02/10/24 03:20 02/10/24 03:20 02/10/24 03:20 02/09/24 09:45 Oxygen Flow Rate (L/min) 2 Oxygen Delivery Method Room Air Weight: 240 lb 4.862 oz Body Mass Index (BMI) 34.4 Intake & Output: Intake and Output for Last 24 Hours 02/08/24 02/09/24 02/10/24 23:59 23:59 23:59 Intake Total 3675.25 / 3675.25 Balance 3675.25 / 3675.25 Physical Exam Const oriented x3 and no apparent distress Resp normal respiratory effort Cardio regular rate and regular rhythm GI soft to palpation Palpation: tender Assessment & Plan Assessment/Plan (1) Umbilical hernia: QUALIFIERS: Obstruction and gangrene presence: without obstruction or gangrene Qualified Code(s): K42.9 - Umbilical hernia without obstruction or gangrene PLAN: Patient is doing well after large umbilical hernia repair. He was kept overnight for observation due to the size of the hernia. Patient is doing well today. Pain is well-controlled. I will discharge him home. Anthony Tse MD Pager: [facility] [address] [place] [address], [address] [place] [address] Office:
--- NOTE | 2024-02-10 07:59 | DCINST_ITS ---
Discharge Instructions Diet Discharge Diet: No restrictions Activity Discharge Activity: May Drive (when off narcotics) and May Shower Lifting Restrictions: 15 lbs for 6 weeks Additional Activity Instructions:: Alternate ibuprofen and Tylenol for pain control, oxycodone for breakthrough pain Dressing / Incision Call your doctor if your incision/area has: Continuous Slow Oozing, Sudden Increased Bleeding, Increased Pain/ Swelling, Increased Redness, Foul Smelling Discharge and Swelling at the incision site Call your doctor if you observe: Fever of 101 or Higher Change Dressing in: 2 days Cleanse incision/area with: Soap & Water Follow Up Care Please Follow Up With: Anthony Tse MD When: Please call to schedule 2 week follow up appointment. [phone] Test Results: Test results from this visit will be discussed in further detail at your follow- up appointment, if applicable. Discharge Plan Admission Admit Date/Time: 02/09/24 08:37 Attending Provider: Anthony Tse Primary Care Provider: Ralph Valles Discharge Orders/Prescriptions Prescriptions: New oxycodone 5 mg Tablet 5 - 10 mg PO Q4H PRN PRN (Reason: Pain Score 4-10) 5 Days Qty: 20 0RF Continued losartan 50 mg tablet 50 mg PO QDAY chlorthalidone 25 mg tablet 25 mg PO QDAY potassium chloride 20 mEq tablet extended release 20 meq PO QDAY spironolactone 25 mg tablet 12.5 mg PO QDAY cholecalciferol (vitamin D3) 25 mcg (1,000 unit) capsule 25 mcg PO QDAY plzcdna-sfblktepu-zwso 333-133-5 mg tablet 2 tab PO DAILY Saccharomyces boulardii [Daily Probiotic (S. boulardii)] 250 mg capsule 250 mg PO BID B Complex Plus Vitamin C 97-73-15-5-300 mg capsule 1 cap PO QDAY Rx Instructions: give with food (meal/snack) Other Ambulatory Orders: 12 Lead EKG (Routine) Timeframe: 20231230 Location: None Selected Ordered By: Dr. Miguel Krause Referrals / Follow Up: Ralph Valles MD [Primary Care Provider] - Disposition Disposition (needs filled in before D/C Order can be placed): Home, Self Care
[2024-02-10 08:32] VITALS: BP 118/62; PULSE 93; RESP 16; TEMP 36.6; O2SAT 93
== END 2024-02-10 08:43 | disposition home or self-care (01) ==
LOC: SDC 11:14 → MS3 11:14
PROVIDERS: Admitting Provider Surgery; PCP Family Medicine; Referring Provider Surgery; Visit Provider Surgery
PROC: (CPT 49593; principal; 2024-02-09 07:15)
DX: K42.9 Umbilical hernia without obstruction or gangrene (principal); I10 Essential (primary) hypertension; R53.81 Other malaise; Z79.899 Other long term (current) drug therapy
CPT/HCPCS: 49593; 00750; 88302; 93005; 99221; J7120; C1781; G0378; J2405

== ENCOUNTER → 2024-04-28 | Outpatient (CLI) | payer MEDICARE, SELFPAY ==
[2024-04-28 18:22] LABS: Anion Gap 7 (5-15); BUN 26 mg/dL (7-18); Calcium,Total 10.1 mg/dL (8.5-10.1); Chloride 101 mmol/L (98-107); Cholesterol 168 mg/dL (200); Creatinine, Serum 1.18 mg/dL (0.70-1.30); EST Glomerular Filtration Rate 63 mL/min (>60); Est Glom Filt Rate - Afr Amer 76 mL/min (>60); Glucose 97 mg/dL (74-106); High Density Lipoprotein 47 mg/dL; Potassium 3.7 mmol/L (3.5-5.1); Sodium Level 135 mmol/L (136-145); Triglycerides 155 mg/dL; Very Low Density Lipoprotein 31 mg/dL (5-40)
== END | disposition home or self-care (01) ==
PROVIDERS: PCP Family Medicine; Referring Provider Family Medicine; Visit Provider Family Medicine
DX: I10 Essential (primary) hypertension (principal)
CPT/HCPCS: 36415; 80048; 80061

== ENCOUNTER → 2024-07-29 | Outpatient (CLI) | payer MEDICARE, SELFPAY ==
[2024-07-29 12:23] LABS: Anion Gap 13 (5-15); BUN 25 mg/dL (4-19); Calcium,Total 9.4 mg/dL (7.6-11.0); Carbon Dioxide 23.5 mmol/L (21.0-32.0); Chloride 100 mmol/L (98-108); Creatinine, Serum 1.31 mg/dL (0.70-1.20); EST Glomerular Filtration Rate 55 (>60); Glucose 186 mg/dL (70-99); Potassium 3.6 mmol/L (3.3-5.1); Sodium Level 136 mmol/L (133-145)
== END | disposition home or self-care (01) ==
LOC: LAB 10:37
PROVIDERS: PCP Family Medicine; Referring Provider Family Medicine; Visit Provider Family Medicine
DX: R53.83 Other fatigue (principal)
CPT/HCPCS: 36415; 80048

== ENCOUNTER → 2024-11-01 | Outpatient (CLI) | payer MEDICARE, SELFPAY ==
[2024-11-01 12:59] LABS: AST(SGOT) 28 U/L (<=37); Alanine Aminotransfer ALT/SGPT 45 U/L (<=46); Albumin, Serum 4.0 g/dL (3.4-4.8); Alkaline Phosphatase 78 U/L (40-129); Anion Gap 11 (5-15); BUN 19 mg/dL (4-19); BUN/Creat Ratio 17.5 RATIO (10-20); Calcium,Total 9.9 mg/dL (7.6-11.0); Carbon Dioxide 23.1 mmol/L (21.0-32.0); Chloride 103 mmol/L (98-108); Globulin 3.0 g/dL (2.2-4.2); Glucose 121 mg/dL (70-99); Potassium 3.9 mmol/L (3.3-5.1)
[2024-11-01 13:49] LABS: Cholesterol 153 mg/dL (<=200); Low Density Lipoprotein Calc. 78 mg/dL; Triglycerides 144 mg/dL; Very Low Density Lipoprotein 29 mg/dL (5-40); cholesterol:hdl ratio screen 3.29
--- OUTSIDE RECORDS SUMMARY | 2024-11-01 19:09 | XMS RPT_ITS | CCD ---
Author Organization [facility] Care Team Providers Care Team Supervisor Name Role Phone Hai LOPEZ, Dr. Rosas Primary Care Provider Hai LOPEZ, Dr. Rosas Attending Provider Hai LOPEZ, Dr. Rosas Referring Provider Ralph Valles Primary Care Unavailable Valles, Ralph Referring Unavailable Calabretta, Attending Unavailable Valles, Ralph Referring Unavailable Valles, Ralph Primary Care Unavailable Grisel Zarco Attending Unavailable Valles, Ralph Referring Unavailable Valles, Ralph Primary Care Unavailable Grisel Zarco Attending Unavailable Valles, Ralph Primary Care Unavailable Calabretta, Attending Unavailable Calabretta, Referring Unavailable Calabretta, Admitting Unavailable Valles, Ralph Attending Unavailable Valles, Ralph Referring Unavailable Valles, Ralph Primary Care Unavailable Valles, Ralph Attending Unavailable Valles, Ralph Referring Unavailable Valles, Ralph Primary Care Unavailable Valles, Ralph Primary Care Unavailable Valles, Ralph Attending Unavailable Calabretta, Attending Unavailable Valles, Ralph Referring Unavailable Valles, Ralph Primary Care Unavailable Calabretta, Attending Unavailable Valles, Ralph Primary Care Unavailable Calabretta, Referring Unavailable Calabretta, Admitting Unavailable Calabretta, Consulting Unavailable Valles, Ralph Primary Care Unavailable Calabretta, Attending Unavailable Calabretta, Referring Unavailable Calabretta, Consulting Unavailable Calabretta, Attending Unavailable Valles, Ralph Primary Care Unavailable Calabretta, Referring Unavailable Calabretta, Consulting Unavailable Allergies Allergy Classification Reported Allergen(s) Allergy Type Date of Onset Reaction(s) Facility (1 source) Lisinopril Drug Allergy 03-20-2024 Other [facility] Comment on above: cough (1 source) Lisinopril Drug Allergy 03-20-2024 [facility] Medications Current Medications Medication Drug Class(es) Dates Sig (Normalized) Sig (Original) Cvhfjoi-Tifuvyhma-Xjm c (1 source) Start: 12-21-2023 Abpmtlj-Tyluhirrv-Df nc 333-133-5 mg tablet Active 2 {tbl} PO DAILY December 21, 2023 12:00am chlorthalidone 25 mg oral tablet (1 source) Thiazide-like Diuretic Start: 12-21-2023 take 1 tablet by mouth once daily Chlorthalidone 25 mg tablet Active 25 mg PO daily December 21, 2023 12:00am cholecalciferol 0.025 mg oral capsule (1 source) Vitamin D Start: 12-21-2023 take 1 capsule by mouth once daily Cholecalciferol (Vitamin D3) 25 mcg (1,000 unit) capsule Active 25 ug PO daily December 21, 2023 12:00am losartan potassium 50 mg oral tablet (1 source) Angiotensin 2 Receptor Carlitos Start: 12-21-2023 take 1 tablet by mouth once daily Losartan 50 mg tablet Active 50 mg PO daily December 21, 2023 12:00am potassium chloride 20 meq extended release oral tablet (1 source) Start: 12-21-2023 take 1 tablet by mouth once daily Potassium Chloride 20 mEq tablet extended release Active 20 meq PO daily December 21, 2023 12:00am saccharomyces boulardii 250 mg oral capsule (1 source) Start: 12-21-2023 take 1 capsule by mouth twice daily Saccharomyces Boulardii (Daily Probiotic (S. Boulardii)) 250 mg capsule Active 250 mg PO TWICE A DAY December 21, 2023 12:00am spironolactone 25 mg oral tablet (1 source) Aldosterone Antagonist Start: 12-21-2023 Spironolactone 25 mg tablet Active 12.5 mg PO daily December 21, 2023 12:00am Vitamin B Comp And C No.3 (B Complex Plus Vitamin C) 82-54-70-5-300 mg capsule (1 source) Start: 12-21-2023 Vitamin B Comp And C No.3 (B Complex Plus Vitamin C) 97-46-47-5-300 mg capsule Active 1 NMA PO daily December 21, 2023 12:00am give with food (meal/snack) Completed/Discontinued Medications Medication Drug Class(es) Dates Sig (Normalized) Sig (Original) oxyCODONE hydrochloride 5 mg oral tablet (1 source) Opioid Agonist Start: 02-10-2024 End: 02-23-2024 take 5-10 mg by mouth every four hours as needed for pain Oxycodone 5 mg Tablet Discontinued 5 - 10 mg PO EVERY 4 HOURS NEEDED as needed for Pain Score 4-10 20 5 February 10, 2024 February 23, 2024 2:26pm Problems Active Problems Problem Classification Problem Date Documented Da te Episodic/Chronic Essential hypertension (1 source) Essential (primary) hypertension; Translations: [Essential (primary) hypertension] Onset: 07-27-2024 Chronic Malaise and fatigue (1 source) Other fatigue; Translations: [Other fatigue] Onset: 08-02-2024 Episodic Other aftercare (1 source) History of repair of umbilical hernia; Translations: [Encounter for follow-up examination after completed treatment for conditions other than malignant neoplasm] 02-23-2024 Episodic Past or Other Problems Problem Classification Problem Date Documented Da te Episodic/Chronic Abdominal hernia (3 sources) Umbilical hernia; Translations: [Umbilical hernia without obstruction or gangrene] Onset: 02-21-2024 02-18-2024 Episodic Results Test Name Value Interpretation Reference Range Facility Anion gap in Serum or Plasma Ordered By: Ralph Valles on 07-29-2024 Anion gap [Moles/Vol] 13 mmol/L 08-03 [facility] BUN/creatinine ratioOrdered By: Ralph Valles on 07-29-2024 Urea nitrogen/Creatinine [Mass ratio] 19.0 mg/mg 01-08 [facility] Basic Metabolic Profile (BMP )on 07-29-2024 BUN/CRE 19.0 RATIO Normal 01-08 [facility] Comment on above: Order Comment: Order Date: 07/28/24 Order Info: 0667-1 - BMP Fatigue Performed By: #### L 500.2500 #### [facility] [address] [place], [place], [address] Calcium [Mass/Vol] 9.4 mg/dL Normal 7.6-11.0 [facility] Comment on above: Order Comment: Order Date: 07/28/24 Order Info: 0667-1 - BMP Fatigue Performed By: #### L 500.2500 #### [facility] [address] [place], [address] Chloride [Moles/Vol] 100 mmol/L Normal 98-108 [facility] Comment on above: Order Comment: Order Date: 07/28/24 Order Info: 666- - BMP Fatigue Performed By: #### L 500.2500 #### [facility] [address] [place], [address] CO2 [Moles/Vol] 23.5 mmol/L Normal 21.0-32.0 [facility] Comment on above: Order Comment: Order Date: 07/28/24 Order Info: 666-03 - BMP Fatigue Performed By: #### L 500.2500 #### [facility] [address] [place], [place], [address] Creatinine [Mass/Vol] 1.31 mg/dL High 0.70-1.20 [facility] Comment on above: Order Comment: Order Date: 07/28/24 Order Info: 666- - BMP Fatigue Performed By: #### L 500.2500 #### [facility] [address] [place], [address] GAP 13 Normal 5-15 [facility] Comment on above: Order Comment: Order Date: 07/28/24 Order Info: 666-03 - BMP Fatigue Performed By: #### L 500.2500 #### [facility] [address] [place], [address] GFR/1.73 sq M.predicted among non-blacks MDRD (S/P/Bld) [Vol rate/Area] 55 mL/min/{1.73_m2} Low >60 [facility] Comment on above: Order Comment: Order Date: 07/28/24 Order Info: 666-1 - BMP Fatigue Result Comment: mL/m in/1.73m2 CKD-EPI Creatinine Equation (2020) Performed By: #### L 500.2500 #### [facility] [address] [place], [address] Glucose [Mass/Vol] 186 mg/dL High 70-99 [facility] Comment on above: Order Comment: Order Date: 07/28/24 Order Info: 666-03 - BMP Fatigue Performed By: #### L 500.2500 #### [facility] [address] [place], [address] Potassium [Moles/Vol] 3.6 mmol/L Normal 3.3-5.1 [facility] Comment on above: Order Comment: Order Date: 07/28/24 Order Info: 666-03 - BMP Fatigue Performed By: #### L 500.2500 #### [facility] [address] [place], [address] Sodium [Moles/Vol] 136 mmol/L Normal 133-145 [facility] Comment on above: Order Comment: Order Date: 07/28/24 Order Info: 666-03 - BMP Fatigue Performed By: #### L 500.2500 #### [facility] [address] [place], [address] Urea nitrogen [Mass/Vol] 25 mg/dL High 4-19 [facility] Comment on above: Order Comment: Order Date: 07/28/24 Order Info: 666-03 - BMP Fatigue Performed By: #### L 500.2500 #### [facility] [address] [place], [place], [address] [phone] Carbon dioxide, total [Moles /volume] in Central venous bloodOrdered By: Ralph Valles on 07-29-2024 CO2 [Moles/Vol] 23.5 mmol/L 21.0-32.0 [facility] Chloride assayOrdered By: Luis Valles on 07-29-2024 Chloride [Moles/Vol] 100 mmol/L 98-108 [facility] Glomerular filtration rate ( GFR) estimation/1.73 sq m using serum, plasma, or whole bOrdered By: Ralph Valles on 07-29-2024 GFR/1.73 sq M.predicted among non-blacks MDRD (S/P/Bld) [Vol rate/Area] 55 mL/min/{1.73_m2} Low >60 [facility] Comment on above: mL/min/1.73m2 CKD-EP I Creatinine Equation (2020) Potassium measurement (mass/ volume)Ordered By: Ralph Valles on 07-29-2024 Potassium (Unsp spec) [Mass/Vol] 3.6 mmol/L 3.3-5.1 [facility] Serum creatinine measurement (mass/volume)Ordered By: Ralph Valles on 07-29-2024 Creatinine [Mass/Vol] 1.31 mg/dL High 0.70-1.20 [facility] Serum glucose measurement (m ass/volume)Ordered By: Ralph Valles on 07-29-2024 Glucose [Mass/Vol] 186 mg/dL High 70-99 [facility] Serum or plasma calcium keiry urement (mass/volume)Ordered By: Ralph Valles on 07-29-2024 Calcium [Mass/Vol] 9.4 mg/dL 7.6-11.0 [facility] Serum or plasma urea nitroge n measurement (mass/volume)Ordered By: Ralph Valles on 07-29-2024 Urea nitrogen [Mass/Vol] 25 mg/dL High 4-19 [facility] Sodium levelOrdered By: Ralph Valles on 07-29-2024 Sodium [Moles/Vol] 136 mmol/L 133-145 [facility] Basic Metabolic Profile (BMP )on 04-28-2024 BUN/CRE 22.0 RATIO High 10-20 [facility] Comment on above: Performed By: #### L 500.2500, L500.4100 #### [facility] [address] [place], [address] CA,Total 10.1 mg/dL Normal 8.5-10.1 [facility] Comment on above: Performed By: #### L 500.2500, L500.4100 #### [facility] [address] [place], [address] Chloride [Moles/Vol] 101 mmol/L Normal 98-107 [facility] Comment on above: Performed By: #### L 500.2500, L500.4100 #### [facility] [address] [place], [address] CO2 [Moles/Vol] 27.0 mmol/L Normal 21.0-32.0 [facility] Comment on above: Performed By: #### L 500.2500, L500.4100 #### [facility] [address] [place], [address] Creatinine [Mass/Vol] 1.18 mg/dL Normal 0.70-1.30 [facility] Comment on above: Result Comment: The validity of the calculated GFR GFRAA in patients over 70 years has not been determined. Clinical correlation is essential. Performed By: #### L 500.2500, L500.4100 #### [facility] [address] [place], [address] EST GFR - AA 76 mL/min Normal >60 [facility] Comment on above: Result Comment: Afri can Afghan GFR Calc Performed By: #### L 500.2500, L500.4100 #### [facility] [address] [place], [address] GAP 7 Normal 5-15 [facility] Comment on above: Performed By: #### L 500.2500, L500.4100 #### [facility] [address] [place], [address] GFR/1.73 sq M.predicted among non-blacks MDRD (S/P/Bld) [Vol rate/Area] 63 mL/min/{1.73_m2} Normal >60 [facility] Comment on above: Result Comment: Non- GFR Calc Performed By: #### L 500.2500, L500.4100 #### [facility] [address] [place], [address] Glucose [Mass/Vol] 97 mg/dL Normal 74-106 [facility] Comment on above: Performed By: #### L 500.2500, L500.4100 #### [facility] [address] [place], [address] Potassium [Moles/Vol] 3.7 mmol/L Normal 3.5-5.1 [facility] Comment on above: Performed By: #### L 500.2500, L500.4100 #### [facility] [address] [place], [address] Sodium [Moles/Vol] 135 mmol/L Low 136-145 [facility] Comment on above: Performed By: #### L 500.2500, L500.4100 #### [facility] [address] [place], [address] Urea nitrogen [Mass/Vol] 26 mg/dL High 7-18 [facility] Comment on above: Performed By: #### L 500.2500, L500.4100 #### [facility] [address] [place], [address] Blood urea nitrogen (BUN)/cr eatinine ratioOrdered By: Ralph Valles on 04-28-2024 Urea nitrogen/Creatinine [Mass ratio] 22.0 mg/mg High 10-20 [facility] Carbon dioxide measurementOr dered By: Ralph Valles on 04-28-2024 CO2 [Moles/Vol] 27.0 mmol/L 21.0-32.0 [facility] Chloride measurementOrdered By: Ralph Valles on 04-28-2024 Chloride [Moles/Vol] 101 mmol/L 98-107 [facility] Glomerular filtration rate ( GFR) estimationOrdered By: Ralph Valles on 04-28-2024 GFR/1.73 sq M.predicted among non-blacks MDRD (S/P/Bld) [Vol rate/Area] 63 mL/min/{1.73_m2} >60 [facility] Comment on above: Non- GFR Calc Glucose measurementOrdered B y: Ralph Valles on 04-28-2024 Glucose [Mass/Vol] 97 mg/dL 74-106 [facility] High density lipoprotein (HD L) measurementOrdered By: Ralph Valles on 04-28-2024 Cholesterol in HDL [Mass/Vol] 47 mg/dL >40 [facility] Comment on above: The drugs N-Acetylcy steine and Metamizole may falsely depress this assay. Reference Range HDL <40 mg/dL Low HDL Cholesterol HDL >or= 60 mg/dL High HDL Cholesterol Lipid Profileon 04-28-2024 Cholesterol [Mass/Vol] 168 mg/dL Normal 200 [facility] Comment on above: Result Comment: <200 mg/dL Desirable 200-240 mg/dL Borderline >240 mg/dL High Risk Performed By: #### L 500.2500, L500.4100 #### [facility] [address] [place], [address] Cholesterol in HDL [Mass/Vol] 47 mg/dL Normal [facility] Comment on above: Result Comment: The drugs N-Acetylcysteine and Metamizole may falsely depress this assay. Reference Range HDL <40 mg/dL Low HDL Cholesterol HDL >or= 60 mg/dL High HDL Cholesterol Performed By: #### L 500.2500, L500.4100 #### [facility] [address] [place], [address] Cholesterol in LDL [Mass/Vol] 90 mg/dL Normal 0-130 [facility] Comment on above: Performed By: #### L 500.2500, L500.4100 #### [facility] [address] [place], [address] Cholesterol in VLDL [Mass/Vol] 31 mg/dL Normal 5-40 [facility] Comment on above: Performed By: #### L 500.2500, L500.4100 #### [facility] [address] [place], [address] Triglyceride [Mass/Vol] 155 mg/dL Normal [facility] Comment on above: Result Comment: The drugs N-Acetylcysteine and Metamizole may falsely depress this assay. Serum Triglycerides Reference Interval Normal <150 mg/dL Borderline high 150 - 199 mg/dL High 200 - 499 mg/dL Very High > or = 500 mg/dL Performed By: #### L 500.2500, L500.4100 #### [facility] [place] [address], [address] Low density lipoprotein (LDL ) cholesterol measurementOrdered By: Ralph Valles on 04-28-2024 Cholesterol in LDL [Mass/Vol] 90 mg/dL 0-130 [facility] Potassium measurementOrdered By: Ralph Valles on 04-28-2024 Potassium [Moles/Vol] 3.7 mmol/L 3.5-5.1 [facility] Serum anion gap measurementO rdered By: Ralph Valles on 04-28-2024 Anion gap [Moles/Vol] 7 mmol/L 5-15 [facility] Serum or plasma calcium keiry urement (mass/volume)Ordered By: Ralph Valles on 04-28-2024 Calcium [Mass/Vol] 10.1 mg/dL 8.5-10.1 [facility] Serum or plasma cholesterol measurement (mass/volume)Ordered By: Ralph Valles on 04-28-2024 Cholesterol [Mass/Vol] 168 mg/dL <200 [facility] Comment on above: <200 mg/dL Desirable 200-240 mg/dL Borderline >240 mg/dL High Risk Serum or plasma creatinine m easurement (mass/volume)Ordered By: Ralph Valles on 04-28-2024 Creatinine [Mass/Vol] 1.18 mg/dL 0.70-1.30 [facility] Comment on above: The validity of the calculated GFR & GFRAA in patients over 70 years has not been determined. Clinical correlation is essential. Serum or plasma urea nitroge n measurement (mass/volume)Ordered By: Ralph Valles on 04-28-2024 Urea nitrogen [Mass/Vol] 26 mg/dL High 7-18 [facility] Sodium levelOrdered By: Ralph Valles on 04-28-2024 Sodium [Moles/Vol] 135 mmol/L Low 136-145 [facility] Triglycerides measurementOrd ered By: Ralph Valles on 04-28-2024 Triglyceride [Mass/Vol] 155 mg/dL <199 [facility] Comment on above: The drugs N-Acetylcy steine and Metamizole may falsely depress this assay.Serum Triglycerides Reference Interval Normal <150 mg/dL Borderline high 150 - 199 mg/dL High 200 - 499 mg/dL Very High > or = 500 mg/dL Very low density lipoprotein (VLDL) cholesterol measurementOrdered By: Ralph Valles on 04-28-2024 Very low density lipoprotein (VLDL) cholesterol measurement 31 mg/dL 5-40 [facility] Surgery Visit Reporton 03-20 Surgery Visit Report [facility] [address] [place] [address] OFFICE VISIT Date of Service: 03/20/24 MR#: [id number] Acct: [id number] Name: OLIVER CORREIA Rep #: [id number] : 1945 Provider: Dr. Anthony arroyo MD Age/Sex: 78/M Location: [facility] Status: Signed Intake Vital Signs 02/14/24 12:21 Height 5 ft 10 in Intake Visit Reasons: Umbilical DOS 02/09 Chief Complaint: hernia, open umbilical repair w/ mesh 02/09 Marketing Database Analyst Required: No Is patient in pain?: No Allergies lisinopril Allergy (Mild, Verified 03/20/24 11:12) Other Medications ???Medication ???Instructions ???Recorded ???Confirmed ???Type Saccharomyces boulardii 250 mg 250 mg PO BID 12/21/23 03/20/24 History capsule (Daily Probiotic (S. boulardii)) ifdwpra-edwvobiwy-vci c 333 mg-133 2 tab PO DAILY 12/21/23 03/20/24 History mg-5 mg tablet chlorthalidone 25 mg tablet 25 mg PO QDAY 12/21/23 03/20/24 History cholecalciferol (vitamin D3) 25 25 mcg PO QDAY 12/21/23 03/20/24 History mcg (1,000 unit) capsule losartan 50 mg tablet 50 mg PO QDAY 12/21/23 03/20/24 History potassium chloride 20 mEq 20 meq PO QDAY 12/21/23 03/20/24 History tablet,extended release spironolactone 25 mg tablet 12.5 mg PO QDAY 12/21/23 03/20/24 History vitamin B comp and C no.3 15 mg-10 1 cap PO QDAY 12/21/23 03/20/24 History mg-50 mg-5 mg-300 mg capsule (B Complex Plus Vitamin C) Have you fallen in the past year?: No Subjective Details: Patient is doing well and is not having any pain. Objective Details: Abdomen is soft and nontender. Incision is healing well. Coding Level of Care Code Global Post Op Diagnoses S/P umbilical hernia repair, follow-up exam Z09 [facility] Medical History Wears glasses Alcohol use History of kidney stones Syncope Gastric reflux Non-smoker Wears dentures HTN (hypertension) Surgical History S/P umbilical hernia repair, follow-up exam History of colonoscopy History of facial fracture repair ( 1974) Family History Father Cancer lung Mother Heart disease Social History Smoking Status: Never smoker Assessment and Plan (No Qualifiers) Assessment and Plan (1) S/P umbilical hernia repair, follow-up exam: Status: Acute Plan: Patient reports he is doing well. His incision is healing well and his hematoma is shrinking. Follow-up as needed. Activity as tolerated 1 more week. Anthony Tse MD Pager: [facility] [address] [place] [address] [address] [phone] Office: 03/20/24 1230 Date Anthony Tse MD [facility] Signature: Date (if applicable) CC: Normal [facility] Surgery Visit Reporton 03-01 Surgery Visit Report [facility] [address] [place] [address] OFFICE VISIT Date of Service: 03/01/24 MR#: [id number] Acct: [id number] Name: OLIVER CORREIA Rep #: [id number] : 1945 Provider: KELLY foley Age/Sex: 78/M Location: [facility] Status: Signed Intake Vital Signs 02/14/24 12:21 Height 5 ft 10 in Intake Visit Reasons: Umbilical DOS 02/09 Chief Complaint: hernia, open umbilical repair w/ mesh 02/09 Accompanied by: Self Is patient in pain?: No Allergies lisinopril Allergy (Mild, Verified 03/01/24 10:02) Other Medications ???Medication ???Instructions ???Recorded ???Confirmed ???Type Saccharomyces boulardii 250 mg 250 mg PO BID 12/21/23 03/01/24 History capsule (Daily Probiotic (S. boulardii)) kkwgduw-wfbzexapt-tzt c 333 mg-133 2 tab PO DAILY 12/21/23 03/01/24 History mg-5 mg tablet chlorthalidone 25 mg tablet 25 mg PO QDAY 12/21/23 03/01/24 History cholecalciferol (vitamin D3) 25 25 mcg PO QDAY 12/21/23 03/01/24 History mcg (1,000 unit) capsule losartan 50 mg tablet 50 mg PO QDAY 12/21/23 03/01/24 History potassium chloride 20 mEq 20 meq PO QDAY 12/21/23 03/01/24 History tablet,extended release spironolactone 25 mg tablet 12.5 mg PO QDAY 12/21/23 03/01/24 History vitamin B comp and C no.3 15 mg-10 1 cap PO QDAY 12/21/23 03/01/24 History mg-50 mg-5 mg-300 mg capsule (B Complex Plus Vitamin C) Have you fallen in the past year?: No Subjective Details: Patient is an 78 y/o M I am following s/p open ventral hernia repair with mesh by Dr. Tse on 02/09/24. Patient returns for a follow-up. He notes the bulge is decreasing in size. He has been performing warm compresses. He has not been wearing his abdominal binder. She denies any new concerns or complaints today. Objective Details: Abdomen- soft. Incision very nicely healed. Hematoma has decreased and somewhat liquified under the incision. No pain or tenderness at the incision site. Coding Level of Care Code Global Post Op Diagnoses S/P umbilical hernia repair, follow-up exam Z09 [facility] Medical History Wears glasses Alcohol use History of kidney stones Syncope Gastric reflux Non-smoker Wears dentures HTN (hypertension) Surgical History S/P umbilical hernia repair, follow-up exam History of colonoscopy History of facial fracture repair ( 1974) Family History Father Cancer lung Mother Heart disease Social History Smoking Status: Never smoker Assessment and Plan (No Qualifiers) Assessment and Plan (1) S/P umbilical hernia repair, follow-up exam: Status: Acute Plan: Continue with lifting restrictions for 3 additional weeks of nothing greater than 20 pounds Continue with warm compresses throughout the day 20 min on and 20 min off Follow-up in [address] Tse 03/01/24 1055 Date Grisel Denson Signature: Date (if applicable) CC: Normal [facility] Surgery Visit Reporton 02-22 Surgery Visit Report [facility] [address] [place] [address] OFFICE VISIT Date of Service: 02/23/24 MR#: [id number] Acct: [id number] Name: OLIVER CORREIA #: [id number] : 1945 Provider: KELLY foley Age/Sex: 78/M Location: [facility] [place] Status: Signed Intake Vital Signs 02/09/24 11:53 02/14/24 12:21 Height 5 ft 10 in 5 ft 10 in Intake Visit Reasons: Umbilical DOS 02/09 Chief Complaint: hernia, open umbilical repair w/ mesh 02/09 Is patient in pain?: No Allergies lisinopril Allergy (Mild, Verified 02/23/24 13:26) Other Medications ???Medication ???Instructions ???Recorded ???Confirmed ???Type Saccharomyces boulardii 250 mg 250 mg PO BID 12/21/23 02/23/24 History capsule (Daily Probiotic (S. boulardii)) kqmgvhd-qmfaihukz-dps c 333 mg-133 2 tab PO DAILY 12/21/23 02/23/24 History mg-5 mg tablet chlorthalidone 25 mg tablet 25 mg PO QDAY 12/21/23 02/23/24 History cholecalciferol (vitamin D3) 25 25 mcg PO QDAY 12/21/23 02/23/24 History mcg (1,000 unit) capsule losartan 50 mg tablet 50 mg PO QDAY 12/21/23 02/23/24 History potassium chloride 20 mEq 20 meq PO QDAY 12/21/23 02/23/24 History tablet,extended release spironolactone 25 mg tablet 12.5 mg PO QDAY 12/21/23 02/23/24 History vitamin B comp and C no.3 15 mg-10 1 cap PO QDAY 12/21/23 02/23/24 History mg-50 mg-5 mg-300 mg capsule (B Complex Plus Vitamin C) Have you fallen in the past year?: No Subjective Details: Patient is an 78 y/o M I am following s/p open ventral hernia repair with mesh by Dr. Tse on 02/09/24. Patient tolerated the procedure well. Patient denies any incisional pain/discomfort. he denies nausea, vomiting, fever. He notes he has kept the bandages in place. He states his appetite is slowly returning to normal. Objective Details: Abdomen- soft, incision intact. All steri-strips and bandages were removed. The tissue is very fragile at the incision site. There appears to be a baseball size hematoma directly under the incision. The superior and inferior incision appears to have a small opening with what appears as old blood noted. Op-site was reapplied over top of the incision. Coding Level of Care Code Global Post Op Diagnoses S/P umbilical hernia repair, follow-up exam Z09 [facility]LY [facility] Medical History (Updated 02/18/24 @ 00:01 by Adarsh Perla) Wears glasses Alcohol use History of kidney stones Syncope Gastric reflux Non-smoker Wears dentures HTN (hypertension) Surgical History (Updated 02/23/24 @ 13:27 by Jenni García) S/P umbilical hernia repair, follow-up exam History of colonoscopy History of facial fracture repair ( 1974) Family History Father Cancer lung Mother Heart disease Social History Smoking Status: Never smoker Assessment and Plan (No Qualifiers) Assessment and Plan (1) S/P umbilical hernia repair, follow-up exam: Status: Acute Plan: Recommend changing the bandage daily and applying another bandage Continue to wear your abdominal binder while up and moving Stressed to the patient that he will need to keep the pressure off of the incision as it is very fragile at this time Recommend applying warm compress to the incision three times per day for 20 minutes each time to help dissolve the hematoma Follow-up in 1 week for re-evaluation If there is any drainage, patient will need to come in sooner 02/23/24 1535 Date Grisel Denson Signature: Date (if applicable) CC: Dr. Ralph Valles MD [facility] Discharge Instructionon 01-21 Discharge Instruction [facility] Medical Records Department [address] [place] [address] Instructions for Home/Discharge Instructions 02/10/24 0759 MR#: [id number] Acct: [id number] Name: OLIVER CORREIA Rep #: [id number] : 1945 78 From: Anthony Tse MD PCP: Dr. Ralph Valles MD Status:ADM COLLIN Discharge Instructions Diet Discharge Diet: No restrictions Activity Discharge Activity: May Drive (when off narcotics) and May Shower Lifting Restrictions: 15 lbs for 6 weeks Additional Activity Instructions:: Alternate ibuprofen and Tylenol for pain control, oxycodone for breakthrough pain Dressing / Incision Call your doctor if your incision/area has: Continuous Slow Oozing, Sudden Increased Bleeding, Increased Pain/ Swelling, Increased Redness, Foul Smelling Discharge and Swelling at the incision site Call your doctor if you observe: Fever of 101 or Higher Change Dressing in: 2 days Cleanse incision/area with: Soap Water Follow Up Care Please Follow Up With: Anthony Tse MD When: Please call to schedule 2 week follow up appointment. [phone] Test Results: Test results from this visit will be discussed in further detail at your follow-up appointment, if applicable. Discharge Plan Admission Admit Date/Time: 02/09/24 08:37 Attending Provider: Anthony Tse Primary Care Provider: Ralph Valles Discharge Orders/Prescriptions Prescriptions: New oxycodone 5 mg Tablet 5 - 10 mg PO Q4H PRN PRN (Reason: Pain Score 4-10) 5 Days Qty: 20 0RF Continued losartan 50 mg tablet 50 mg PO QDAY chlorthalidone 25 mg tablet 25 mg PO QDAY potassium chloride 20 mEq tablet extended release 20 meq PO QDAY spironolactone 25 mg tablet 12.5 mg PO QDAY cholecalciferol (vitamin D3) 25 mcg (1,000 unit) capsule 25 mcg PO QDAY nzqdylm-jlvkcvziw-dst c 333-133-5 mg tablet 2 tab PO DAILY Saccharomyces boulardii [Daily Probiotic (S. boulardii)] 250 mg capsule 250 mg PO BID B Complex Plus Vitamin C 37-93-90-5-300 mg capsule 1 cap PO QDAY Rx Instructions: give with food (meal/snack) Other Ambulatory Orders: 12 Lead EKG (Routine) Timeframe: 20231230 Location: None Selected Ordered By: Dr. Miguel Krause Referrals / Follow Up: Ralph Valles MD [Primary Care Provider] - Disposition Disposition (needs filled in before D/C Order can be placed): Home, Self Care 02/10/24 0804 Anthony Tse MD CC: Dr. Ralph Valles MD Signed [facility] MR/POSTOP.ANE 02-09-2024 MR/POSTOP.[facility] Medical Records Department [address] [place] [address] Anesthesia Postop Eval I 02/09/24 0959 MR#: [id number] Acct: [id number] Name: OLIVER CORREIA Rep #: [id number] : 1945 78 From: Dex Beckett MD PCP: Dr. Ralph Valles MD Status:[facility] Y Race: C Location: [place] [address] Anesthesia: Postop Eval I Current Vital Signs Temperature: 97 F Pulse Rate: 70 Blood Pressure: 106/68 Respiratory Rate: 16 Pulse Ox: 97 Assessment Airway patent: Yes Spontaneous unlabored respirations: Yes Mental status: Awake nausea: No Vomiting: No Anesthesia Complication: No Fluid Hydration Crystalloid volume administer (ml): 500 Total IV fluid infused: 500 Progress Note Anesthesia document: Postop Eval 1 completed: Yes 02/09/24 1000 Date [facility] Date CC: Signed [facility] MR/JNPEGLSU1ft 02-09-2024 MR/POSTOPAN2 [facility] Medical Records Department [address] [place] [address] Anesthesia Postop Eval II 02/09/24 1000 MR#: [id number] Acct: [id number] Name: OLIVER CORREIA Rep #: [id number] : 1945 78 From: Dex Beckett MD PCP: Dr. Ralph Valles MD Status:REG [facility] Y Race: C Location: [place] [address] Anesthesia Postop Eval I Sum Postop Eval Completion status Anesthesia document: Postop Eval 1 completed: Yes Anesthesia Postop Eval I Summary Anesthesia Postop Eval I Summary: Anesthesia Postop Eval I: Assessment Summary Airway patent Yes 02/09/24 10:00 Spontaneous unlabored Yes 02/09/24 10:00 respirations Mental status Awake 02/09/24 10:00 nausea No 02/09/24 10:00 Vomiting No 02/09/24 10:00 Anesthesia Postop Eval I: Fluid Summary Crystalloid volume administer 500 02/09/24 10:00 (ml) Colloids volume administered ( ml) Blood Product volume administered (ml) Total IV fluid infused 500 02/09/24 10:00 Anesthesia Postop Eval I: Summary Notes Anesthesia Complication No 02/09/24 10:00 Anesthesia Complication Comment: Post-operative progress note Anesthesia: Postop Eval II Evaluation Mental status: Awake Pain Level: 0 nausea: No Vomiting: No 02/09/24 1000 Date Dex Beckett MD Cosigner Signature: Date CC: Signed [facility] Operative Reporton 4 Operative Report [facility] Medical Records Department [address] [place] [address] Operative Report 02/09/24 0839 MR#: [id number] Acct: [id number] Name: OLIVER CORREIA Rep #: [id number] : 1945 78 From: Anthony Tse MD PCP: Dr. Ralph Valles MD Status:REG [facility] Location: [facility]06-1 Operative Report (Standard) Operative Information Surgery/Procedure Performed: Ventral hernia repair with mesh over 3 cm Surgeon: Anthony Tse Date of Procedure: 02/09/24 Procedure Start Time: 07:43 Procedure Stop Time: 08:45 Pre-Operative Diagnosis: Umbilical hernia over 3 cm Post-Operative Diagnosis: Umbilical hernia 5 cm in diameter Select all DRAINS/GRAFTS/IMPLANT S that apply: Implanted device Implanted device details: 8 x [address] mesh Type of Anesthesia: General/Regional Estimated Blood Loss: 10 Specimen collected: Yes Description of specimen(s) removed: Hernia sac Description of surgery: Patient was brought back to the operating room and general anesthesia was induced. The abdomen was prepped and draped in usual sterile fashion. An elliptical incision was made excising some of the extra skin after the hernia was reduced. While making skin incision a small area of small bowel had some cautery injury. This was imbricated using 3-0 silk sutures. Next the bowel was returned to the abdomen. The elliptical incision was completed and the skin was removed. The hernia sac was removed with it. The anterior fascia was dissected circumferentially and then elevated. The retrorectus space was accessed and using electrocautery the posterior rectus sheath was divided from the rectus muscle. This was done on both sides and it was extended superiorly and inferiorly. Once dissection was completed the posterior rectus sheath was reapproximated using a #1 PDS suture. After this was reapproximated the area was irrigated and suctioned dry and then a Ventrio mesh was selected and placed into the retrorectus space. Next the area was irrigated and suctioned dry. The anterior fascia was then closed with a running #1 Prolene suture. Next the skin was reapproximated with interrupted 3-0 Vicryl sutures and a running 4-0 Monocryl suture. Steri-Strips and bandages were applied. Patient was taken to PACU in stable condition and will be observed overnight due to the size of the hernia and the patient's debility. 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 Anthony Tse MD; Dr. Ralph Valles MD Signed [facility] Surgery Specimen Level IIon 02-09-2024 Surgery Specimen Level II -------- Patient Age/Sex Location Account Attending Physician -------- OLIVER CORREIA 78/M MS3 [id number] Dr. Anthony Tse MD -------- Specimen: [id number] Received: 02/09/24 Status: MARGE Adrienne Num: [id number] Spec Type: Hernia Subm Dr: Dr. Anthony Tse MD HEADER OPERATION: Hernia, open umbilical repair with mesh PRE-OP DIAGNOSIS: Umbilical hernia TISSUE SUBMITTED: Hernia sac -------- MICROSCOPIC DIAGNOSIS Hernia sac: Pieces of fibroadipose tissue and fibroconnective tissue, consistent with hernia sac. Gurvinder 02/10/2024 MICROSCOPIC DESCRIPTION Slides are reviewed. GROSS DESCRIPTION Received in fixative is one container labeled with the patient's name and designated Hernia sac. The specimen consists of two irregular pieces of pink congested soft tissue measuring in aggregate 10.0 x 6.0 x 1.0cm. Sections do not reveal any mass lesions. Home Insurance Agent sections are submitted in two cassettes. . 02/09/2024 TC:5 CPT:11683 -------- Patient Age/Sex Location Account Attending Physician -------- OLIVER CORREIA 78/M MS3 [id number] Dr. Anthony Tse MD -------- Signed (signature on file) Dr. Sawyer Valiente MD 02/10/24 1456 -------- [facility] Comment on above: Performed By: #### P SUII #### [facility] [address] [place], [address] 12 Lead EKGon 01-04-2024 12 Lead EKG [facility] Cardiovascular Services [address] [place] [address] 12 Lead EKG 01/04/24 1032 MR#: [id number] Acct: [id number] Name: OLIVER CORREIA Rep #: [id number] : 1945 78 From: Sheldon Gonzalez MD Attending Dr: Dr. Anthony Tse MD Status: PRE SDC Ordering Dr: Anthony Tse MD Date: 01/04/24 Location: [facility] Sex: M C Admitted: Test Reason : PRE OP Blood Pressure : / mmHG Vent. Rate : 067 BPM Atrial Rate : 067 BPM P-R Int : 166 ms QRS Dur : 088 ms QT Int : 402 ms P-R-T Axes : 035 005 086 degrees QTc Int : 424 ms Normal sinus rhythm Normal ECG Confirmed by GARY LOPEZ, SHELDON ([id number]), newspaper photo editor GRISEL TEE ([id number]) on 01/04/2024 1:29:07 PM Referred By: Anthony Tse Confirmed By:SHELDON GONZALEZ MD 01/04/24 1329 Date Sheldon Gonzalez MD CC: Dr. Anthony Tse MD; Dr. Ralph Valles MD Signed [facility] Surgery Visit Reporton 12-20 [facility] [address] [place] [address] OFFICE VISIT Date of Service: 12/21/23 MR#: [id number] Acct: [id number] Name: OLIVER CORREIA Rep #: [id number] : 1945 Provider: Dr. Anthony arroyo MD Age/Sex: 78/M Location: [facility] Status: Signed Intake Vital Signs 12/21/23 13:06 Height 5 ft 10 in Weight: 237 lb BMI 34.0 BP 106/69 Blood Pressure Location Rt brachial Position Sitting Respiration 17 Pulse 69 Pulse Source Monitor Pulse Oximetry (%) 96 Oxygen Delivery Method room air Intake Visit Reasons: UMBILICAL HERNIA Chief Complaint: umbilical hernia Is patient in pain?: No Allergies lisinopril Allergy (Mild, Verified 12/21/23 13:07) Other Medications ???Medication ???Instructions ???Recorded ???Confirmed ???Type Saccharomyces boulardii 250 mg 250 mg PO BID 12/21/23 12/21/23 History capsule (Daily Probiotic (S. boulardii)) eirsvan-gnyomhoxg-oer c 333 mg-133 tab PO 12/21/23 12/21/23 History mg-5 mg tablet chlorthalidone 25 mg tablet 25 mg PO QDAY 12/21/23 12/21/23 History cholecalciferol (vitamin D3) 25 25 mcg PO QDAY 12/21/23 12/21/23 History mcg (1,000 unit) capsule losartan 50 mg tablet 50 mg PO QDAY 12/21/23 12/21/23 History potassium chloride 20 mEq 20 meq PO QDAY 12/21/23 12/21/23 History tablet,extended release spironolactone 25 mg tablet 12.5 mg PO QDAY 12/21/23 12/21/23 History vitamin B comp and C no.3 15 mg-10 1 cap PO QDAY 12/21/23 12/21/23 History mg-50 mg-5 mg-300 mg capsule (B Complex Plus Vitamin C) Have you fallen in the past year?: No PFSH Medical History (Updated 12/21/23 @ 13:[address] Anthony Tse MD) HTN (hypertension) Family History (Updated 12/21/23 @ 13:06 by Jenni García) Father Cancer lung Mother Heart disease HPI HPI HPI: Patient is an 78-year-old male here with a large umbilical hernia. The patient reports has been there for several years. Is becoming more painful. He is able to reduce it. He denies nausea or vomiting. ROS General General: No weight change, appetite, fatigue, colon cancer, breast cancer or weakness HEENT HEENT: No difficulty swallowing, eye injury, eye surgery, swollen glands or hoarseness Endo Endocrine: No thyroid disease, diabetes mellitus, thyroid cancer, Hair loss, heat intolerance or cold intolerance Skin Skin: No rash or changing moles Musc Musculoskeletal: No back problems, arthritis, rheumatoid arthritis, gout or joint pain Cardio Cardiovascular: Yes high blood pressure; No murmur, pacemaker, heart disease, atrial fibrillation, heart attack, heart stent, palpitations, shortness of breat with exertion or chest pain Psych Psychiatric: No depression, anxiety or hearing voices Resp Respiratory: No shortness of breath, No sleep apnea, No cough, No COPD, No asthma, No emphysema and No wheezing Gastro Gastrointestinal: No abdominal pain, No nausea or vomiting, No diarrhea, No constipation, No blood in stool, No acid reflux, No hemorrhoids, No ulcers, No gallbladder problem and No black,tarry sto ols Baljit Hematologic: No blood thinners, No blood disorders, No bleeding, No anemia and No blood clots Neuro Neurologic: No system reviewed and no additional complaints, except as documented, No as per HPI, No abnormal gait, No abnormal hearing, No abnormal movements, No abnormal speech, No behavioral changes, No burning sensations, No confusion, No convulsions, No disequilibrium, No dizziness, No localized weakness, No frequent falls, No headache(s), No lack of coordination, No loss of vision, No memory loss, No numbness, No other visual disturbances, No radicular pain, No restless legs, No sensory deficit, No syncope, No tingling, No tremor(s), No weakness and No other Exam Const General: cooperative Orientation: alert and oriented x3 HENMT Head: normal to inspection Neck Neck: normal visual inspection and full ROM Chest Chest palpation inspection: normal inspection of the chest Resp Effort Inspection: normal respiratory effort Auscultation: clear to auscultation bilaterally Cardio Rate: regular rate Rhythm: regular rhythm GI Inspection: non-distended Palpation: soft, hernia umbilical and nontender Skin General: no rashes or lesions noted Neuro General: patient alert and patient oriented x3 Extrem General: full ROM Psych Appearance: grossly normal Mental Status: mental status grossly normal Assessment and Plan Assessment and Plan (1) Umbilical hernia: Status: Acute Qualifiers: Obstruction and gangrene presence: without obstruction or gangrene Qualified Code(s): K42.9 - Umbilical hernia without obstruction or gangrene Plan: The patient has a large umbilical hernia. The defect measures appr (more content not included)... [facility] Basic Metabolic Profile (BMP )on 10-27-2023 BUN/CRE 18.0 RATIO Normal 10-20 [facility] Comment on above: Performed By: #### L 501.9520, L509.3000, L100.0500, L500.2500 #### [facility] [address] [place], [address] CA,Total 10.0 mg/dL Normal 8.5-10.1 [facility] Comment on above: Performed By: #### L 501.9520, L509.3000, L100.0500, L500.2500 #### [facility] [address] [place], [address] Chloride [Moles/Vol] 103 mmol/L Normal 98-107 [facility] Comment on above: Performed By: #### L 501.9520, L509.3000, L100.0500, L500.2500 #### [facility] [address] [place], [address] CO2 [Moles/Vol] 28.0 mmol/L Normal 21.0-32.0 [facility] Comment on above: Performed By: #### L 501.9520, L509.3000, L100.0500, L500.2500 #### [facility] [address] [place], [address] Creatinine [Mass/Vol] 1.39 mg/dL High 0.70-1.30 [facility] Comment on above: Result Comment: The validity of the calculated GFR GFRAA in patients over 70 years has not been determined. Clinical correlation is essential. Performed By: #### L 501.9520, L509.3000, L100.0500, L500.2500 #### [facility] [address] [place], [address] EST GFR - AA 63 mL/min Normal >60 [facility] Comment on above: Result Comment: Afri can Afghan GFR Calc Performed By: #### L 501.9520, L509.3000, L100.0500, L500.2500 #### [facility] [address] [place], [address] GAP 6 Normal 5-15 [facility] Comment on above: Performed By: #### L 501.9520, L509.3000, L100.0500, L500.2500 #### [facility] [address] [place], [address] GFR/1.73 sq M.predicted among non-blacks MDRD (S/P/Bld) [Vol rate/Area] 52 mL/min/{1.73_m2} Low >60 [facility] Comment on above: Result Comment: Non- GFR Calc Performed By: #### L 501.9520, L509.3000, L100.0500, L500.2500 #### [facility] [address] [place], [address] Glucose [Mass/Vol] 111 mg/dL High 74-106 [facility] Comment on above: Result Comment: Fast ing Glucose result from 100 to 125 mg/dL suggests IMPAIRED HOMEOSTASIS per A.D.A. criteria. Performed By: #### L 501.9520, L509.3000, L100.0500, L500.2500 #### [facility] [address] [place], [address] Potassium [Moles/Vol] 3.5 mmol/L Normal 3.5-5.1 [facility] Comment on above: Performed By: #### L 501.9520, L509.3000, L100.0500, L500.2500 #### [facility] [address] [place], [address] Sodium [Moles/Vol] 137 mmol/L Normal 136-145 [facility] Comment on above: Performed By: #### L 501.9520, L509.3000, L100.0500, L500.2500 #### [facility] [address] [place], [address] Urea nitrogen [Mass/Vol] 25 mg/dL High 7-18 [facility] Comment on above: Performed By: #### L 501.9520, L509.3000, L100.0500, L500.2500 #### [facility] [address] [place], [address] CBC-Complete Blood Cnt [facility] 10-27-2023 Erythrocyte distribution width (RBC) [Ratio] 13.2 % Normal 11.6-14.6 [facility] Comment on above: Performed By: #### L 501.9520, L509.3000, L100.0500, L500.2500 #### [facility] [address] [place], [address] Hematocrit (Bld) [Volume fraction] 39.6 % Low 40-54 [facility] Comment on above: Performed By: #### L 501.9520, L509.3000, L100.0500, L500.2500 #### [facility] [address] [place], [address] Hemoglobin (Bld) [Mass/Vol] 13.6 g/dL Normal 13.0-16.5 [facility] Comment on above: Performed By: #### L 501.9520, L509.3000, L100.0500, L500.2500 #### [facility] [address] [place], [address] MCH (RBC) [Entitic mass] 31.2 pg Normal 27.0-32.0 [facility] Comment on above: Performed By: #### L 501.9520, L509.3000, L100.0500, L500.2500 #### [facility] [address] [place], [address] MCHC (RBC) [Mass/Vol] 34.3 g/dL Normal 32-36 [facility] Comment on above: Performed By: #### L 501.9520, L509.3000, L100.0500, L500.2500 #### [facility] [address] [place], [address] MCV (RBC) [Entitic vol] 90.8 fL Normal 80-94 [facility] Comment on above: Performed By: #### L 501.9520, L509.3000, L100.0500, L500.2500 #### [facility] [address] [place], [address] Platelet mean volume (Bld) [Entitic vol] 10.8 fL Normal 6.2-12.0 [facility] Comment on above: Performed By: #### L 501.9520, L509.3000, L100.0500, L500.2500 #### [facility] [address] [place], [address] Platelets (Bld) [#/Vol] 209 10*3/uL Normal 150-450 [facility] Comment on above: Performed By: #### L 501.9520, L509.3000, L100.0500, L500.2500 #### [facility] [address] [place], [address] RBC (Bld) [#/Vol] 4.36 10*6/uL Low 4.6-6.2 [facility] Comment on above: Performed By: #### L 501.9520, L509.3000, L100.0500, L500.2500 #### [facility] [address] [place], [address] RDW SD 44.3 fl High 35.1-43.9 [facility] Comment on above: Performed By: #### L 501.9520, L509.3000, L100.0500, L500.2500 #### [facility] [address] [place], [address] WBC (Bld) [#/Vol] 9.0 10*3/uL Normal 4.4-11.0 [facility] Comment on above: Performed By: #### L 501.9520, L509.3000, L100.0500, L500.2500 #### [facility] [address] [place], [address] Testosterone, Serum Totalon 10-27-2023 Testosterone [Mass/Vol] 292.02 ng/dL [facility] Comment on above: Result Comment: CENT RAL 90% REFERENCE RANGES MALE AGE <50 197.44 - 669.58 ng/dL MALE AGE > or = 50 187.72 - 684.19 ng/dL FEMALE AGE <50 8.38 - 35.01 ng/dL FEMALE AGE > or = 50 <7.00 - 35.92 ng/dL Effective as of 10/15/20 Performed By: #### L 501.9520, L509.3000, L100.0500, L500.2500 #### [facility] [address] [place], [address] Thyroid Stim Hormone (TSH)on 10-27-2023 TSH 1.12 uIU/mL Normal 0.358-3.74 [facility] Comment on above: Performed By: #### L 501.9520, L509.3000, L100.0500, L500.2500 #### [facility] [address] [place], [address] Basophil percentageOrdered B y: Ralph Valles on 09-12-2022 Chloride [Moles/Vol] 106 mmol/L 98-107 [facility] Cholesterol [Mass/Vol] 152 mg/dL <200 [facility] Comment on above: <200 mg/dL Desirable 200-240 mg/dL Borderline >240 mg/dL High Risk Glucose [Mass/Vol] 111 mg/dL 74-106 [facility] Comment on above: Fasting Glucose resu lt from 100 to 125 mg/dL suggests IMPAIRED HOMEOSTASIS per A.D.A. criteria. Potassium [Moles/Vol] 4.2 mmol/L 3.5-5.1 [facility] Sodium [Moles/Vol] 138 mmol/L 136-145 [facility] Triglyceride [Mass/Vol] 115 mg/dL <199 [facility] Comment on above: The drugs N-Acetylcy steine and Metamizole may falsely depress this assay.Serum Triglycerides Reference Interval Normal <150 mg/dL Borderline high 150 - 199 mg/dL High 200 - 499 mg/dL Very High > or = 500 mg/dL Laboratory - Chemistry and C hemistry - challengeOrdered By: Ralph Valles on 09-12-2022 CO2 [Moles/Vol] 28.0 mmol/L 21.0-32.0 [facility] Urea nitrogen/Creatinine [Mass ratio] 15.8 mg/mg 10-20 [facility] No Panel InformationOrdered By: Ralph Valles on 09-12-2022 Estimated GFR (MDRD) Amer 75 mL/min >60 [facility] Comment on above: GFR Calc Estimated GFR (MDRD) Non-Af Amer 62 mL/min >60 [facility] Comment on above: Non- GFR Calc Serum or plasma calcium keiry urement (mass/volume)Ordered By: Ralph Valles on 09-12-2022 Calcium [Mass/Vol] 9.3 mg/dL 8.5-10.1 [facility] Serum or plasma cholesterol in HDL measurement (mass/volume)Ordered By: Ralph Valles on 09-12-2022 Cholesterol in HDL [Mass/Vol] 45 mg/dL >40 [facility] Comment on above: The drugs N-Acetylcy steine and Metamizole may falsely depress this assay. Reference Range HDL <40 mg/dL Low HDL Cholesterol HDL >or= 60 mg/dL High HDL Cholesterol Serum or plasma cholesterol in VLDL measurement (mass/volume)Ordered By: Ralph Valles on 09-12-2022 Cholesterol in VLDL [Mass/Vol] 23 mg/dL 5-40 [facility] Serum or plasma creatinine m easurement (mass/volume)Ordered By: Ralph Valles on 09-12-2022 Creatinine [Mass/Vol] 1.20 mg/dL 0.70-1.30 [facility] Comment on above: The validity of the calculated GFR & GFRAA in patients over 70 years has not been determined. Clinical correlation is essential. Serum or plasma low density lipoprotein (LDL) cholesterol measurement (mass/volume)Ordered By: Ralph Valles on 09-12-2022 Cholesterol in LDL [Mass/Vol] 84 mg/dL 0-130 [facility] Serum or plasma urea nitroge n measurement (mass/volume)Ordered By: Ralph Valles on 09-12-2022 Urea nitrogen [Mass/Vol] 19 mg/dL 7-18 [facility] Thin prep Papanicolaou smear with manual screeningOrdered By: Ralph Valles on 09-12-2022 Thin prep Papanicolaou smear with manual screening 4 5-15 [facility] Basophil percentageon 2021 Chloride [Moles/Vol] 103 mmol/L 98-107 [facility] Work Phone: Cholesterol [Mass/Vol] 156 mg/dL <200 [facility] Work Phone: Comment on above: <200 mg/dL Desirable 200-240 mg/dL Borderline >240 mg/dL High Risk Glucose [Mass/Vol] 120 mg/dL 74-106 [facility] Work Phone: Comment on above: Fasting Glucose resu lt from 100 to 125 mg/dL suggests IMPAIRED HOMEOSTASIS per A.D.A. criteria. Potassium [Moles/Vol] 3.6 mmol/L 3.5-5.1 [facility] Work Phone: Sodium [Moles/Vol] 137 mmol/L 136-145 [facility] Work Phone: Triglyceride [Mass/Vol] 111 mg/dL <199 [facility] Work Phone: Comment on above: The drugs N-Acetylcy steine and Metamizole may falsely depress this assay.Serum Triglycerides Reference Interval Normal <150 mg/dL Borderline high 150 - 199 mg/dL High 200 - 499 mg/dL Very High > or = 500 mg/dL Laboratory - Chemistry and C hemistry - challengeon 02-05-2022 CO2 [Moles/Vol] 26.0 mmol/L 21.0-32.0 [facility] Work Phone: Urea nitrogen/Creatinine [Mass ratio] 17.5 mg/mg 10-20 [facility] Work Phone: No Panel Informationon 02-05 Estimated GFR (MDRD) Amer 75 mL/min >60 [facility] Work Phone: Comment on above: GFR Calc Estimated GFR (MDRD) Non-Af Amer 62 mL/min >60 [facility] Work Phone: Comment on above: Non- GFR Calc Serum or plasma calcium keiry urement (mass/volume)on 02-05-2022 Calcium [Mass/Vol] 9.7 mg/dL 8.5-10.1 [facility] Work Phone: Serum or plasma cholesterol in HDL measurement (mass/volume)on 02-05-2022 Cholesterol in HDL [Mass/Vol] 42 mg/dL >40 [facility] Work Phone: Comment on above: The drugs N-Acetylcy steine and Metamizole may falsely depress this assay. Reference Range HDL <40 mg/dL Low HDL Cholesterol HDL >or= 60 mg/dL High HDL Cholesterol Serum or plasma cholesterol in VLDL measurement (mass/volume)on 02-05-2022 Cholesterol in VLDL [Mass/Vol] 22 mg/dL 5-40 [facility] Work Phone: Serum or plasma creatinine m easurement (mass/volume)on 02-05-2022 Creatinine [Mass/Vol] 1.20 mg/dL 0.70-1.30 [facility] Work Phone: Comment on above: The validity of the calculated GFR & GFRAA in patients over 70 years has not been determined. Clinical correlation is essential. Serum or plasma low density lipoprotein (LDL) cholesterol measurement (mass/volume)on 02-05-2022 Cholesterol in LDL [Mass/Vol] 92 mg/dL 0-130 [facility] Work Phone: Serum or plasma urea nitroge n measurement (mass/volume)on 02-05-2022 Urea nitrogen [Mass/Vol] 21 mg/dL 7-18 [facility] Work Phone: Thin prep Papanicolaou smear with manual screeningon 02-05-2022 Thin prep Papanicolaou smear with manual screening 8 5-15 [facility] Work Phone: Whole blood hemoglobin A1c/t otal hemoglobin ratio (mass fraction)on 02-05-2022 HbA1c (Bld) [Mass fraction] 5.4 % 3.8-5.6 [facility] Work Phone: Comment on above: Normal < 5.7 % Predi abetic 5.7 - 6.4 % Diabetic >or= 6.5 % Please note range changes. Basophil percentageon 2021 Glucose [Mass/Vol] 122 mg/dL 74-106 [facility] Work Phone: Comment on above: Fasting Glucose resu lt from 100 to 125 mg/dL suggests IMPAIRED HOMEOSTASIS per A.D.A. criteria. Whole blood hemoglobin A1c/t otal hemoglobin ratio (mass fraction)on 08-20-2021 HbA1c (Bld) [Mass fraction] 5.9 % 3.8-5.6 [facility] Work Phone: Comment on above: Normal < 5.7 % Predi abetic 5.7 - 6.4 % Diabetic >or= 6.5 % Please note range changes. Basophil percentageon 2021 Chloride [Moles/Vol] 100 mmol/L 98-107 [facility] Work Phone: Glucose [Mass/Vol] 180 mg/dL 74-106 [facility] Work Phone: Comment on above: Fasting Glucose resu lt greater than or equal to 126 mg/dL suggests DIABETES MELLITUS per A.D.A. criteria. Potassium [Moles/Vol] 3.6 mmol/L 3.5-5.1 [facility] Work Phone: Sodium [Moles/Vol] 135 mmol/L 136-145 [facility] Work Phone: Laboratory - Chemistry and C hemistry - challengeon 08-06-2021 CO2 [Moles/Vol] 27.0 mmol/L 21.0-32.0 [facility] Work Phone: Urea nitrogen/Creatinine [Mass ratio] 15.7 mg/mg 10-20 [facility] Work Phone: No Panel Informationon 08-06 Estimated GFR (MDRD) Amer 66 mL/min >60 [facility] Work Phone: Comment on above: GFR Calc Estimated GFR (MDRD) Non-Af Amer 55 mL/min >60 [facility] Work Phone: Comment on above: Non- GFR Calc Serum or plasma calcium keiry urement (mass/volume)on 08-06-2021 Calcium [Mass/Vol] 9.3 mg/dL 8.5-10.1 [facility] Work Phone: Serum or plasma creatinine m easurement (mass/volume)on 08-06-2021 Creatinine [Mass/Vol] 1.34 mg/dL 0.70-1.30 [facility] Work Phone: Comment on above: The validity of the calculated GFR & GFRAA in patients over 70 years has not been determined. Clinical correlation is essential. Serum or plasma urea nitroge n measurement (mass/volume)on 08-06-2021 Urea nitrogen [Mass/Vol] 21 mg/dL 7-18 [facility] Work Phone: Thin prep Papanicolaou smear with manual screeningon 08-06-2021 Thin prep Papanicolaou smear with manual screening 8 5-15 [facility] Work Phone: Encounters Encounter Date Encounter Type Care Provider Facility Start: 07-29-2024 End: 07-29-[address] Ralph Valles MD Work Phone: [facility] Work Phone: Start: 07-29-2024 End: 07-29-[address] Ralph Valles MD -Laboratory Work Phone: Start: 07-29-2024 End: 07-29-2024 ambulatory Ralph Valles Facility:[facility] Start: 04-28-2024 End: 04-28-[address] Ralph Valles MD -Laboratory [facility] Start: 04-28-2024 End: 04-28-2024 ambulatory Ralph Valles Facility:[facility] Start: 03-20-2024 End: 03-20-2024 ambulatory Anthony Tse Facility:[facility] Start: 03-06-2024 [facility] Start: 03-01-2024 End: 03-01-2024 ambulatory Ralph Valles Facility:[facility] Start: 02-23-2024 End: 02-23-2024 ambulatory Ralph Valles Facility:[facility] Start: 02-09-2024 End: 02-10-2024 ambulatory Ralph Valles Facility:[facility] Start: 02-09-2024 ambulatory Anthony Tse Faci lity:[facility] Start: 01-12-2024 ambulatory Ralph Valles Facility:[facility] Start: 12-21-2023 End: 12-21-2023 ambulatory Ralph Valles Facility:[facility] Start: 10-27-2023 End: 10-27-2023 ambulatory Ralph Valles Facility:[facility] Start: 09-12-2022 End: 09-12-2022 ambulatory [facility] Work Phone: Start: 09-12-2022 End: 09-12-2022 Patient encounter procedure [facility] Work Phone: Start: 02-23-2022 End: 02-23-2022 ambulatory [facility] Work Phone: Start: 02-23-2022 End: 02-23-2022 [facility] Start: 02-05-2022 End: 02-05-2022 ambulatory [facility] Work Phone: Start: 02-05-2022 End: 02-05-2022 Patient encounter procedure [facility] Start: 08-20-2021 End: 08-20-2021 Patient encounter procedure [facility] Start: 08-06-2021 End: 08-06-2021 Patient encounter procedure [facility] Procedures Date Procedure Procedure Detail Performing Clinician Start: 04-28-2024 Measurement of renal function Dr. Ralph Valles MD Work Phone: Comment on above: GFR Calc Start: 02-23-2022 X-ray of rib Payers Date Payer Category Payer Unknown [id number] 2023 Self-pay [id number] 2021 Private Health Insurance 101 [id number] 2014 Medicare [id number] 2012 Medicare [employer] MED[employer] [id number] 200 [id number] Unknown [id number] Unknown [id number] Unknown [id number] Unknown [id number] Unknown [id number] Unknown [id number] Unknown [id number] Unknown [id number] Unknown [id number] Unknown [id number] Unknown [id number] Unknown [id number] Social History Date Type Detail Facility Tobacco smoking stat [facility] Unknown if ever smoked [facility] Work Phone: Start: 1945 Sex Assigned At Male [facility] Start: 02-14-2024 [facility] Medical Equipment Procedure Code Equipment Code Equipment Origin al Text Equipment Identifier Dates Repair, hernia, umbilical, using mesh Extra-gynaecologic al surgical mesh, composite-polymer ([id number] Start: 02-09-2024 Clinical Note 02-09-2024 Note Date & Type Note Facility 02-09-2024 Note [facility] Medical Records Department [address] [place] [address] History Physical Exam 02/09/24 0720 MR#: [id number] Acct: [id number] Name: OLIEVR CORREIA Rep #: [id number] : 1945 78 From: Anthony Tse MD PCP: Dr. Ralph Valles MD Status:[facility] Location: [place] [address] History and Physical Date of Admission: 02/09/24 Intake Vital Signs 12/20/2412:06 Height 5 ft 10 in Weight: 237 lb BMI 34.0 BP 106/69 Blood Pressure Location Rt brachial Position Sitting Respiration 17 Pulse 69 Pulse Source Monitor Pulse Oximetry (%) 96 Oxygen Delivery Method room air Intake Visit Reasons: UMBILICAL HERNIA Chief Complaint: umbilical hernia Is patient in pain?: No Allergies lisinopril Allergy (Mild, Verified 12/21/23 13:07)Other Medications ???Medication ???Instructions ???Recorded ???Confirmed ???Type Saccharomyces boulardii 250 mg 250 mg PO BID 12/21/23 12/21/23 History capsule (Daily Probiotic (S. boulardii)) nuojxad-jrwaytfae-lusn 333 mg-133 tab PO 12/21/23 12/21/23 History mg-5 mg tablet chlorthalidone 25 mg tablet 25 mg PO QDAY 12/21/23 12/21/23 History cholecalciferol (vitamin D3) 25 25 mcg PO QDAY 12/21/23 12/21/23 History mcg (1,000 unit) capsule losartan 50 mg tablet 50 mg PO QDAY 12/21/23 12/21/23 History potassium chloride 20 mEq 20 meq PO QDAY 12/21/23 12/21/23 History tablet,extended release spironolactone 25 mg tablet 12.5 mg PO QDAY 12/21/23 12/21/23 History vitamin B comp and C no.3 15 mg-10 1 cap PO QDAY 12/21/23 12/21/23 History mg-50 mg-5 mg-300 mg capsule (B Complex Plus Vitamin C) Have you fallen in the past year?: No PFSH Medical History (Updated 12/21/23 @ 13:[address] Anthony Tse MD) HTN (hypertension) Family History (Updated 12/21/23 @ 13:06 by Jenni García) Father Cancer lungMother Heart disease HPI HPI HPI: Patient is an 78-year-old male here with a large umbilical hernia. The patient reports has been there for several years. Is becoming more painful. He is able to reduce it. He denies nausea or vomiting. ROS General General: No weight change, appetite, fatigue, colon cancer, breast cancer or weakness HEENT HEENT: No difficulty swallowing, eye injury, eye surgery, swollen glands or hoarseness Endo Endocrine: No thyroid disease, diabetes mellitus, thyroid cancer, Hair loss, heat intolerance or cold intolerance Skin Skin: No rash or changing moles Musc Musculoskeletal: No back problems, arthritis, rheumatoid arthritis, gout or joint pain Cardio Cardiovascular: Yes high blood pressure; No murmur, pacemaker, heart disease, atrial fibrillation, heart attack, heart stent, palpitations, shortness of breat with exertion or chest pain Psych Psychiatric: No depression, anxiety or hearing voices Resp Respiratory: No shortness of breath, No sleep apnea, No cough, No COPD, No asthma, No emphysema and No wheezing Gastro Gastrointestinal: No abdominal pain, No nausea or vomiting, No diarrhea, No constipation, No blood in stool, No acid reflux, No hemorrhoids, No ulcers, No gallbladder problem and No black,tarry stools Baljit Hematologic: No blood thinners, No blood disorders, No bleeding, No anemia and No blood clots Neuro Neurologic: No system reviewed and no additional complaints, except as documented, No as per HPI, No abnormal gait, No abnormal hearing, No abnormal movements, No abnormal speech, No behavioral changes, No burning sensations, No confusion, No convulsions, No disequilibrium, No dizziness, No localized weakness, No frequent falls, No headache(s), No lack of coordination, No loss of vision, No memory loss, No numbness, No other visual disturbances, No radicular pain, No restless legs, No sensory deficit, No syncope, No tingling, No tremor(s), No weakness and No other Exam Const General: cooperative Orientation: alert and oriented x3 HENMT Head: normal to inspection Neck Neck: normal visual inspection and full ROM Chest Chest palpation inspection: normal inspection of the chest Resp Effort Inspection: normal respiratory effort Auscultation: clear to auscultation bilaterally Cardio Rate: regular rate Rhythm: regular rhythm GI Inspection: non-distended Palpation: soft, hernia umbilical and nontender Skin General: no rashes or lesions noted Neuro General: patient alert and patient oriented x3 Extrem General: full ROM Psych Appearance: grossly normal Mental Status: mental status grossly normal Assessment and Plan Assessment and Plan (1) Umbilical hernia: Status: Acute Qualifiers: Obstruction and gangrene presence: without obstruction or gangrene Qualified Code(s): K42.9 - Umbilical hernia without obstruction or gangrene Plan: The patient has a large umbilical hernia. The defect (more content not included)... [facility] Clinical Note 10-23-2024 Note Date & Type Note Facility 01-12-2024 Note [facility] Medical Records Department [address] [place] [address] History Physical Exam 01/12/24 1029 MR#: [id number] Acct: [id number] Name: OLIVER CORREIA Rep #: [id number] : 1945 78 From: Anthony Tse MD PCP: Dr. Ralph Valles MD Status:[facility] Location: [address] History and Physical Date of Admission: 01/12/24 Intake Vital Signs 12/20/2412:06 Height 5 ft 10 in Weight: 237 lb BMI 34.0 BP 106/69 Blood Pressure Location Rt brachial Position Sitting Respiration 17 Pulse 69 Pulse Source Monitor Pulse Oximetry (%) 96 Oxygen Delivery Method room air Intake Visit Reasons: UMBILICAL HERNIA Chief Complaint: umbilical hernia Is patient in pain?: No Allergies lisinopril Allergy (Mild, Verified 12/21/23 13:07) Other Medications ???Medication ???Instructions ???Recorded ???Confirmed ???Type Saccharomyces boulardii 250 mg 250 mg PO BID 12/21/23 12/21/23 History capsule (Daily Probiotic (S. boulardii)) ydamfil-zcfdxivys-ejci 333 mg-133 tab PO 12/21/23 12/21/23 History mg-5 mg tablet chlorthalidone 25 mg tablet 25 mg PO QDAY 12/21/23 12/21/23 History cholecalciferol (vitamin D3) 25 25 mcg PO QDAY 12/21/23 12/21/23 History mcg (1,000 unit) capsule losartan 50 mg tablet 50 mg PO QDAY 12/21/23 12/21/23 History potassium chloride 20 mEq 20 meq PO QDAY 12/21/23 12/21/23 History tablet,extended release spironolactone 25 mg tablet 12.5 mg PO QDAY 12/21/23 12/21/23 History vitamin B comp and C no.3 15 mg-10 1 cap PO QDAY 12/21/23 12/21/23 History mg-50 mg-5 mg-300 mg capsule (B Complex Plus Vitamin C) Have you fallen in the past year?: No [facility] Medical History (Updated 12/21/23 @ 13:[address] Anthony Tse MD) HTN (hypertension) Family History (Updated 12/21/23 @ 13:06 by Jenni García) Father Cancer lungMother Heart disease HPI HPI HPI: Patient is an 78-year-old male here with a large umbilical hernia. The patient reports has been there for several years. Is becoming more painful. He is able to reduce it. He denies nausea or vomiting. ROS General General: No weight change, appetite, fatigue, colon cancer, breast cancer or weakness HEENT HEENT: No difficulty swallowing, eye injury, eye surgery, swollen glands or hoarseness Endo Endocrine: No thyroid disease, diabetes mellitus, thyroid cancer, Hair loss, heat intolerance or cold intolerance Skin Skin: No rash or changing moles Musc Musculoskeletal: No back problems, arthritis, rheumatoid arthritis, gout or joint pain Cardio Cardiovascular: Yes high blood pressure; No murmur, pacemaker, heart disease, atrial fibrillation, heart attack, heart stent, palpitations, shortness of breat with exertion or chest pain Psych Psychiatric: No depression, anxiety or hearing voices Resp Respiratory: No shortness of breath, No sleep apnea, No cough, No COPD, No asthma, No emphysema and No wheezing Gastro Gastrointestinal: No abdominal pain, No nausea or vomiting, No diarrhea, No constipation, No blood in stool, No acid reflux, No hemorrhoids, No ulcers, No gallbladder problem and No black,tarry stools Baljit Hematologic: No blood thinners, No blood disorders, No bleeding, No anemia and No blood clots Neuro Neurologic: No system reviewed and no additional complaints, except as documented, No as per HPI, No abnormal gait, No abnormal hearing, No abnormal movements, No abnormal speech, No behavioral changes, No burning sensations, No confusion, No convulsions, No disequilibrium, No dizziness, No localized weakness, No frequent falls, No headache(s), No lack of coordination, No loss of vision, No memory loss, No numbness, No other visual disturbances, No radicular pain, No restless legs, No sensory deficit, No syncope, No tingling, No tremor(s), No weakness and No other Exam Const General: cooperative Orientation: alert and oriented x3 HENMT Head: normal to inspection Neck Neck: normal visual inspection and full ROM Chest Chest palpation inspection: normal inspection of the chest Resp Effort Inspection: normal respiratory effort Auscultation: clear to auscultation bilaterally Cardio Rate: regular rate Rhythm: regular rhythm GI Inspection: non-distended Palpation: soft, hernia umbilical and nontender Skin General: no rashes or lesions noted Neuro General: patient alert and patient oriented x3 Extrem General: full ROM Psych Appearance: grossly normal Mental Status: mental status grossly normal Assessment and Plan Assessment and Plan (1) Umbilical hernia: Status: Acute Qualifiers: Obstruction and gangrene presence: without obstruction or gangrene Qualified Code(s): K42.9 - Umbilical hernia without obstruction or gangrene Plan: The patient has a large umbilical hernia. The def (more content not included)... [facility] Evaluation note Note Date & Type Note Facility Evaluation note No assessment information availa ble [facility] Work Phone: Reason for referral (narrative) Note Date & Type Note Facility Reason for referral (narrative) No reason for referral information available [facility] Work Phone: Chief Complaint and Reason for Visit Chief Complaint LEFT RIB XRAY Chief Complaint Admit Date EORDER July 29, 2024 10:32 am Family History No Family History Records Found Relationship Condition Age at Onset Recorded Date/T ryan father Malignant neoplasm Unknown mother Cardiac disease Unknown Summary Purpose Advance Directives No Advanced Directives Records Found Additional Source Comments Goals (unrecognized section and content) Goals may be documented in a n alternate sectionGoals may be documented in an alternate sectionGoals may be documented in an alternate sectionGoals may be documented in an alternate section Care Teams (unrecognized sec tion and content) Team Status: Active Member Role Status Dates Dr. Ralph Valles MD Family Provider Active Dr. Ralph Valles MD Primary Care Provider Active Team Status: Inactive Member Role Status Dates Dr. Ralph Valles MD Primary Care Provi radha, Attending Provider, Referring Provider Active Team Status: Inactive Member Role Status Dates Dr. Ralph Valles MD Primary Care Provider Active Start: April 28, 2024 End: April 28, 2024 Dr. Ralph Valles MD Attending Provider Active Start: April 28, 2024 End: April 28, 2024 Dr. Ralph Valles MD Referring Provider Active Start: April 28, 2024 End: April 28, 2024 Team Status: Inactive Member Role Status Dates Dr. Ralph Valles MD Primary Care Provider Active Start: July 29, 2024 End: July 29, 2024 Dr. Ralph Valles MD Attending Provider Active Start: July 29, 2024 End: July 29, 2024 Dr. Ralph Valles MD Referring Provider Active Start: July 29, 2024 End: July 29, 2024 (unrecognized sect ion and content) No Status Records Found INFORMATION SOURCE (unrecogn ized section and content) DATE CREATED AUTHOR 08/03/2024 [facility] FOR RECORDS PERTAINING TO PATIENTS WHO ARE OR HAVE BEEN ENROLLED IN A CHEMICAL DEPENDENCY/SUBSTANCEABUSE PROGRAM, SOME INFORMATION MAY BE OMITTED. This clinical summary was aggregated from multiple sources. Caution should be exercised in using it in the provision of clinical care. This summary normalizes information from multiple sources, and as a consequence, information in this document may materially change the coding, format and clinical context of patient data. In addition, data may be omitted in some cases. CLINICAL DECISIONS SHOULD BE BASED ON THE PRIMARY CLINICAL RECORDS. [facility]. provides no warranty or guarantee of the accuracy or completeness of information in this document.
== END | disposition home or self-care (01) ==
LOC: MFPLAB 10:27
PROVIDERS: PCP Family Medicine; Visit Provider Family Medicine
DX: I10 Essential (primary) hypertension (principal)
CPT/HCPCS: 36415; 80053; 80061